=== PATIENT | male | born 1935 | race Caucasian/White ===

== ENCOUNTER → 2017-07-24 | Outpatient (CLI) | payer OTHER ==
[~2017-07-24] MED LIST: ATOR-22 PO; CHOL100010 PO; FINA5TAB PO; HYT/2 PO; MELO15TA3 PO; OMEG10007 PO; PRLSR20 PO; ZNTT/150 PO
== END | disposition home or self-care (01) ==
LOC: C.CPL 08:55
PROVIDERS: ATTEND Orthopaedic Surgery
DX: G56.21 Lesion of ulnar nerve, right upper limb (principal)

== ENCOUNTER 2020-12-08 07:34 | Inpatient (IN) ==
--- NOTE | 2020-11-15 10:35 | Anesthesiology Consultation ---
Date of Service November 15, 2020 Assessment & Plan (1) Encounter for pre-operative examination: Per assessment on 11/15: Travel screen negative. No known COVID-19 positive contacts or current COVID-19 related symptoms. Surgeon arranging preop COVID testing. Awaiting results. Chart Review Chart Review: Acceptable Risk for Surgery and entry specialist initiated (information recalled from 10/11/20 PAT visit) History Surgery Operation Date: 12/08/20 07:45 Proposed Procedures p L2-L4 Decompression Fusion, L4-S1 Hardware Removal, Spinal Cord Monitoring - Adonay Hook DO Height/Weight Height: 5 ft 7 in Weight: 54.431 kg Allergies Allergy/AdvReac Type Severity Reaction Status Date / Time No Known Drug Allergies Allergy Verified 11/15/20 09:34 Medications Home Medications Medication Instructions Recorded Confirmed Last Taken food supplemt, lactose-reduced 1 ea PO QAM ml 05/19/19 11/15/20 12/02/19 multivitamin with minerals-folic 200 mcg PO QAM tab 05/19/19 11/15/20 12/02/19 acid 200 mcg chewable tablet omega-3 acid ethyl esters 1 gram 1 cap PO QDL cap 05/19/19 11/15/20 12/02/19 capsule magnesium 200 mg tablet 200 mg PO 2XWK 03/04/20 11/15/20 Unknown omeprazole 20 mg tablet,delayed 20 - 40 mg PO QAM tab 07/19/20 11/15/20 Unknown release Vitamin D 1 tab PO QAM 09/20/20 11/15/20 Unknown aspirin-caffeine [[place] Back and 1 tab PO UD PRN 09/20/20 11/15/20 Unknown Body] sodium chloride [[place] Allergy and 1 - 2 spray INTRANASAL HS PRN 09/20/20 11/15/20 Unknown Sinus] terazosin 2 mg PO HS 09/20/20 11/15/20 Unknown zinc 50 mg PO 2XWK 09/20/20 11/15/20 Unknown Past Medical History Medical History Apical lung scarring Arthritis BPH (benign prostatic hyperplasia) Cervical radiculopathy Cervical stenosis of spine GERD (gastroesophageal reflux disease) controlled Hernia, hiatal History of duodenal ulcer several years ago Hyperlipidemia Pulmonary nodule hx SNHL (sensorineural hearing loss) Past Family History Family History Father Coronary heart disease Sister Colon cancer Unknown No family history of bleeding disorder Other No family history of adverse response to anesthesia Past Surgical History Surgical History History of bilateral cataract extraction History of carpal tunnel surgery of right wrist History of colonoscopy History of discectomy L4 History of elbow surgery right for pinched nerve History of elbow surgery left for pinched nerve History of esophagogastroduodenoscopy (EGD) History of fusion of lumbar spine History of mandibular surgery pins in place of upper jaw to hold teeth History of prostate biopsy History of tonsillectomy History of tooth extraction all teeth History of total left hip replacement History of total right hip replacement History of transurethral resection of prostate Status post trigger finger release x2--one one each hand Social History Smoking Status: Former smoker Do You Dip or Chew Tobacco: No Smoking End Date: quit cigars 1974 Hx Alcohol Use: Yes Alcohol type: beer alcohol intake frequency: a few times a week Hx Substance Use: No substance use type: does not use Review of Systems Patient denies chest pain, shortness of breath, dyspnea on exertion, joint pain, reflux, cough, wheezing, palpitations. Physical Exam Vital Signs Vital Signs BP 144/76 P 73 TEMP 97.6 SP02 95%RA RESP 16 Physical Decreased cervical extension Full TMJ range of motion. TMD 3 finger breaths Mallampati Score 2 Dentition: upper/lower dentures Lungs: clear throughout to auscultation Cardiac: regular rate and rhythm, no murmurs noted Spine: normal Carotid arteries: negative bruit Extremities: no edema Testing Laboratory Results 10/11/20 WBC 6.63 H/H 14.3/42.6 PLATELETS 202 SODIUM 140 POTASSIUM 4.0 CHLORIDE 109 CO2 27 BUN 18 CREATININE 1.14 GLUCOSE 129 PT 10.6 PTT 28.6 INR 1.0 UA negative TYPE AND SCREEN O+ Ab- Electrocardiogram Date: 10/11/20 SB with sinus arrhythmia at 59bpm. Chest X-Ray Date: 10/11/20 FINDINGS: Punctate calcified granulomas within the left lung. Linear density at the left lung base favor scarring or atelectasis otherwise, lungs are clear. No pleural effusions. No pneumothorax. The heart is normal in size. Mild right apical pleural thickening. This is likely chronic. The heart is normal in size. IMPRESSION: No acute process.
[~2020-12-08 07:34] MED LIST changes: +ACETAMINOPHEN 500 MG TAB PO SCH; -ATOR-22 PO; -CHOL100010 PO; +CeleBREX 200 MG CAP PO SCH; -FINA5TAB PO; +GABAPENTIN 300 MG CAP PO SCH; -HYT/2 PO; +LR 15ML/HR IV SCH; -MELO15TA3 PO; -OMEG10007 PO; -PRLSR20 PO; -ZNTT/150 PO; +ceFAZolin 1000MG 1,000 MG/7.5 ML SYR IV SCH
[2020-12-08] MEDS ORDERED: DEXAMETHASONE SOD INJ 4 MG/ML VIAL ONE (08:27)
[2020-12-08] MEDS ORDERED: LIDOCAINE HCL 2% 2 ML VIAL/AMP(20MG/ML) INFIL ONE (08:27)
[2020-12-08] MEDS ORDERED: GLYCOPYRROLATE 0.2 MG/ML VIAL ONE ×2 (08:27→11:09)
[2020-12-08] MEDS ORDERED: ONDANSETRON INJ 2 MG/ML 2 ML VIAL ONE (08:27)
[2020-12-08] MEDS ORDERED: ROCURONIUM BROMIDE 10 MG/ML 5 ML VIAL IV ONE (08:27)
[2020-12-08] MEDS ORDERED: MIDAZOLAM HCL 1 MG/ML 2ML VIAL ONE (08:27)
[2020-12-08] MEDS ORDERED: PROPOFOL IV EMULSION 10 MG/ML 20 ML VIAL IV ONE (08:27)
[2020-12-08] MEDS ORDERED: NEOSTIGMINE METHYLSULFATE 1 MG/ML 10ML VIAL ONE (08:27)
[2020-12-08] MEDS ORDERED: HYDROmorphone INJ 2 MG/ML SYR/VIAL ONE (08:28)
[2020-12-08] MEDS ORDERED: fentaNYL citrate 100 MCG/2 ML VIAL IV PRN (09:24)
[2020-12-08] MEDS ORDERED: ePHEDrine sulfate 50 MG/ML AMP IV PRN (09:24)
[2020-12-08] MEDS ORDERED: ATROPINE SULFATE 0.1 MG/ML 10ML SYR IV PRN (09:24)
[2020-12-08] MEDS ORDERED: ONDANSETRON INJ 2 MG/ML 2 ML VIAL IV PRN ×2 (09:24→14:02)
[2020-12-08] MEDS ORDERED: HYDROmorphone INJ 1 MG/ML SYRINGE IV PRN ×2 (09:24→14:02)
--- NOTE | 2020-12-08 09:54 | History & Physical Bridge Note ---
Date of Service December 08, 2020 History & Physical Bridge Note I have examined the patient, reviewed the History & Physical and in the interval since the performance of the History & Physical I have noted the following changes of clinical significance: no changes noted
--- NOTE | 2020-12-08 09:55 | History & Physical Report ---
Date of Service December 08, 2020 Assessment & Plan (1) Neurogenic claudication due to lumbar spinal stenosis: Admission and Anticipated Discharge Date Admission Date: L2-L4 decompression fusion, L4-S1 hardware removal History of Present Illness Chief Complaint: Back and bilateral leg pain Primary Care Provider: Rodriguez Gutierrez MD This is a 85-year-old male who presents with current persistent back and bilateral leg pain. After failing course of nonoperative care is here for surgical intervention. Allergies Allergy/AdvReac Type Severity Reaction Status Date / Time No Known Drug Allergies Allergy Verified 12/08/20 08:12 Home Medications Medication Instructions Recorded Confirmed Type food supplemt, lactose-reduced 1 ea PO QAM ml 05/19/19 12/08/20 History multivitamin with minerals-folic 200 mcg PO QAM tab 05/19/19 12/08/20 History acid 200 mcg chewable tablet omega-3 acid ethyl esters 1 gram 1 cap PO QDL cap 05/19/19 12/08/20 History capsule magnesium 200 mg tablet 200 mg PO 2XWK 03/04/20 12/08/20 History omeprazole 20 mg tablet,delayed 20 - 40 mg PO QAM tab 07/19/20 12/08/20 History release Vitamin D 1 tab PO QAM 09/20/20 12/08/20 History aspirin-caffeine [[place] Back and 1 tab PO UD PRN 09/20/20 12/08/20 History Body] sodium chloride [[place] Allergy and 1 - 2 spray INTRANASAL HS PRN 09/20/20 12/08/20 History Sinus] terazosin 2 mg PO HS 09/20/20 12/08/20 History zinc 50 mg PO 2XWK 09/20/20 12/08/20 History Past Med/Surg History Medical History Apical lung scarring Arthritis BPH (benign prostatic hyperplasia) Cervical radiculopathy Cervical stenosis of spine GERD (gastroesophageal reflux disease) controlled Hernia, hiatal History of duodenal ulcer several years ago Hyperlipidemia Pulmonary nodule hx SNHL (sensorineural hearing loss) Surgical History History of bilateral cataract extraction History of carpal tunnel surgery of right wrist History of colonoscopy History of discectomy L4 History of elbow surgery right for pinched nerve History of elbow surgery left for pinched nerve History of esophagogastroduodenoscopy (EGD) History of fusion of lumbar spine History of mandibular surgery pins in place of upper jaw to hold teeth History of prostate biopsy History of tonsillectomy History of tooth extraction all teeth History of total left hip replacement History of total right hip replacement History of transurethral resection of prostate Status post trigger finger release x2--one one each hand Family History Father Coronary heart disease Sister Colon cancer Unknown No family history of bleeding disorder Other No family history of adverse response to anesthesia Social History Smoking Status: Former smoker Smoking End Date: quit cigars 1974; Second Hand Exposure: No; Do You Dip or Chew Tobacco: No; Tobacco Cessation Education Requested by Patient: No Hx Alcohol Use: Yes Alcohol type: beer Hx Substance Use: No Preferred Language: Guatemalan Communication Ability: Effective Visual Impairment: No Limitations Hearing Ability: Normal 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 Beliefs That Will Affect Care: None marital status: Current Living Situation: Spouse current occupational status: retired Feels Safe at Home: Yes Safety Concerns: Feels Safe At This Time Childhood Exposure to Second-Hand Smoke: No caffeine: Yes Dental Care, Regularly: No Physical Activity Frequency: Daily Seatbelt Use: always Sunscreen Use: Yes Assistive Devices: Denture - Upper, Denture - Lower and Glasses Physical Exam Physical Exam: Patient is alert and oriented Heart regular rate and rhythm Lungs clear to auscultation Results & Data ([facility]) Vital Signs (Past 12 Hours) Vital Signs Temp Pulse Resp BP Pulse Ox 12/08/20 07:55 36.6 C 72 18 161/90 H 97
[2020-12-08] MEDS ORDERED: BACITRACIN INJ 50,000 UNIT VIAL ONE (10:16)
[2020-12-08] MEDS ORDERED: BUPIVACAINE/EPINEPHRINE 0.5% MPF 1:200,000 30 ML VIAL ONE (10:16)
[2020-12-08] MEDS ORDERED: FLOSEAL HEMOSTATIC MATRIX 10ML TOP ONE (11:05)
--- NOTE | 2020-12-08 12:37 | Operative Report ---
Post Operative Report Pre & Post Diagnosis Operation Date: 12/08/20 09:05 Pre-Op Diagnosis: Spinal Stenosis, Lumbar Region without Neurogenic Post-Op Diagnosis: Spinal Stenosis, Lumbar Region without Neurogenic I identified the patient and participated in the time-out.: Yes Procedure Operation Date: 12/08/20 09:05 Actual Procedures #1 removal of posterior instrumentation L4-5 L5-S1. #2 exploration of fusion L4-5 L5-S1. 3 lumbar decompression with bilateral medial facetectomies and foraminotomies L2-3 and L3-4. #4 posterior spinal fusion L2-3 L3-4. #5 placement posterior instrumentation L2-3 L3-4 per #6 placement locally harvested morselized autograft in the posterior lateral gutters. #7 placement infuse collagen sponge, and master graft in the posterior gutters. Surgeon Adonay Hook, Butter Grader Vitaliy Ramos Estimated Blood Loss 100 Findings Consistent with Post-Op Diagnosis Specimens None Indications This is an 85-year-old male well-known to me the presents with marked decline in status. After failing course of nonoperative care is here for the above- mentioned procedure. Description of Procedure Patient met with identified informed consent obtained. Patient was then taken to the operative suite underwent an patient placed in a prone position injectable top Jeovany frame. All bony prominences well-padded eyes inspected to ensure no external pressure placed upon the. This point the lumbar spine was prepped and draped in a sterile fashion. Sharp dissection with assistance of Bovie cautery was performed down to and exposing the lamina and transverse processes of L2-L3 and instrumentation at L4-L5 and S1 levels bilaterally. Then proceeded to remove the hardware bilaterally at L4-L5 and S1. The bony fusion was intact noted to be mature. Then performed a complete laminectomy of L3 and L2 from a caudal cephalad fashion addressing severe central lateral recess stenosis. Pedicle screws then placed in L2-L3-L4 bilaterally with assistance of fluoroscopy and the appropriately sized rosa isela locked into position. Transverse processes of L2-L3-L4 burred to subcortical bleeding bone. Infuse collagen sponge master graft local autograft was placed in the posterior lateral gutters. 15 round RAISSA drain inserted. The incision was then closed with 1 Vicryl the fascia 2-0 Vicryl subcutaneously and 4 Monocryl for final skin closure. Steri- Strip sterile dressings placed. Patient will continue PACU stable condition. Please note spinal cord monitoring was utilized at the procedure no changes noted. Brenda diaz was present throughout the entire procedure involved the patient positioning complex portions of the surgery and final skin closure. I attest to the content of the Intraoperative Record and any orders documented therein. Any exceptions are noted below.
--- NOTE | 2020-12-08 13:27 | Fluoroscopy Report ---
FL lumbar spine 2-3V CLINICAL HISTORY: L2-L4 DECOMPRESSION AND FUSION L4-S1 HW REMOVAL COMPARISON STUDY: None. FLUOROSCOPY TIME: 11 seconds. FINDINGS: 2 fluoroscopic spot images of the lumbar spine demonstrate L2-L4 posterior decompression fu shahab with pedicle screws and rods. The hardware appears intact. IMPRESSION: Fluoroscopy provided for L2 L4 posterior decompression and fusion ACT 112: Negative or not required by law. Electronically signed by: Jovan Hughes M.D. 12/08/2020 1:26 PM
[2020-12-08] MEDS ORDERED: SOD PHOSPHATE/SOD BIPHOSPHATE ENEMA 132 ML BTL PR PRN (14:02)
[2020-12-08] MEDS ORDERED: NALOXONE HCL 0.4 MG/1 ML VIAL/CARP IV PRN (14:02)
[2020-12-08] MEDS ORDERED: DO NOT ADMINISTER PNEUMOCOCCAL VACCINE PRN (14:02)
[2020-12-08] MEDS ORDERED: diphenhydrAMINE Capsule 25 MG CAP PO PRN (14:02)
[2020-12-08] MEDS ORDERED: MAGNESIUM HYDROXIDE SUSP 30 ML UDC PO PRN (14:02)
[2020-12-08] MEDS ORDERED: METOCLOPRAMIDE HCL INJ 5 MG/ML 2 ML VIAL IV PRN (14:02)
[2020-12-08] MEDS ORDERED: LORazepam 0.5 MG/1 ML VIAL IV PRN (14:02)
[2020-12-08] MEDS ORDERED: LORazepam 0.5 MG TAB PO PRN (14:02)
[2020-12-08] MEDS ORDERED: ACETAMINOPHEN 500 MG TAB PO PRN (14:02)
[2020-12-08] MEDS ORDERED: oxyCODONE HCL IR 5 MG TAB (IMMEDIATE RELEASE) PO PRN (14:02)
[2020-12-08] MEDS ORDERED: hydrOXYzine HCl 25 MG TAB PO PRN (14:02)
[2020-12-08] MEDS ORDERED: PROMETHAZINE HCL 12.5 MG in SODIUM CHLORIDE 0.9% 50 ML IV PRN (14:02)
[2020-12-08] MEDS ORDERED: FAMOTIDINE 20 MG TAB PO PRN (14:02)
[2020-12-08] MEDS ORDERED: HYDROmorphone INJ 0.5 MG/0.5 ML SYR IV PRN (14:02)
[2020-12-08] MEDS ORDERED: DO NOT ADMINISTER FLU VACCINE PRN (14:02)
[2020-12-08] MEDS ORDERED: ACETAMINOPHEN 1,000 MG/100 ML VIAL IV PRN (14:02)
[2020-12-08] MEDS ORDERED: ONDANSETRON 4 MG OD TAB PO PRN (14:02)
[2020-12-08] MEDS ORDERED: ALUMINUM/MAGNESIUM SUSP 30 ML UDC PO PRN (14:02)
--- NOTE | 2020-12-08 15:20 | Hospitalist Consultation ---
Date of Consultation December 08, 2020 Assessment & Plan (1) Neurogenic claudication due to lumbar spinal stenosis: POD# 0 s/p lumbar decompression/fusion of previous repair involving the following (failed outpatient treatment): * #1 removal of posterior instrumentation L4-5 L5-S1. * #2 exploration of fusion L4-5 L5-S1. * #3 lumbar decompression with bilateral medial facetectomies and foraminotomies L2-3 and L3-4. * #4 posterior spinal fusion L2-3 L3-4. * #5 placement posterior instrumentation L2-3 L3-4 per * #6 placement locally harvested morselized autograft in the posterior lateral gutters. * #7 placement infuse collagen sponge, and master graft in the posterior gutters with Dr. Hook * PT/OT/pain management/bowel regimen per primary service * NSS @ 100cc/hr * Cefazolin for operative abx * EBL 100cc. 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 Mccullough. Hospitalist service will follow along. Supervising Physician Co-Signing Physician Notes I supervised Sridevi Cooney PA-C on this consultation. I interviewed and examined the patient independently of her. The plan is as written in the note except for any following changes/exceptions: None Doing well post-operatively. Already asking to go home. Neurologically intact. Defer disposition to Dr. Hook. History of Present Illness Reason for Consultation: medical management Requesting Physician: Dr Hook Attending Physician: Adonay Hook, DO History of Present Illness 85 male with PMHx significant for GERD (with hx duodenal ulcer, hiatal hernia and hx Schatzki's rings), HLD (previously on Pravastatin), BPH and arthritis with significant decline in status failing outpatient treatment for back pain presented for removal of hardware and lumbar decompression and fusion L2-L4 with Dr. Hook this morning. Patient doing well post-operatively. Denies any pain at this time. Strength improved to bilateral lower extremities. Slightly tired following procedure and initially napping on entry to room with blankets on. History of GERD but states symptoms controlled outside of occasional belching today. Discussed Protonix while inpatient. Patient agreeable. Otherwise healthy, takes vitamins and terazosin for BPH. Still with Shea draining yellow urine but will need to monitor output once discontinued. Passing gas but no BM. Has not eaten yet. No fever, chills, chest pain, shortness of breath, abdominal pain, nausea, vomiting or dysuria. Lives at home with his and initially states "hopefully I'll be going home today". Discussed back surgery likely to remain inpatient for at least overnight but will leave decision up to Dr Hook. Allergies Allergy/AdvReac Type Severity Reaction Status Date / Time No Known Drug Allergies Allergy Verified 12/08/20 08:12 Home Medications Medication Instructions Recorded Confirmed Type food supplemt, lactose-reduced 1 ea PO QAM ml 05/19/19 12/08/20 History multivitamin with minerals-folic 200 mcg PO QAM tab 05/19/19 12/08/20 History acid 200 mcg chewable tablet omega-3 acid ethyl esters 1 gram 1 cap PO QDL cap 05/19/19 12/08/20 History capsule magnesium 200 mg tablet 200 mg PO 2XWK 03/04/20 12/08/20 History omeprazole 20 mg tablet,delayed 20 - 40 mg PO QAM tab 07/19/20 12/08/20 History release Vitamin D 1 tab PO QAM 09/20/20 12/08/20 History aspirin-caffeine [[place] Back and 1 tab PO UD PRN 09/20/20 12/08/20 History Body] sodium chloride [[place] Allergy and 1 - 2 spray INTRANASAL HS PRN 09/20/20 12/08/20 History Sinus] terazosin 2 mg PO HS 09/20/20 12/08/20 History zinc 50 mg PO 2XWK 09/20/20 12/08/20 History Patient History Medical History Apical lung scarring Arthritis BPH (benign prostatic hyperplasia) Cervical radiculopathy Cervical stenosis of spine GERD (gastroesophageal reflux disease) controlled Hernia, hiatal History of duodenal ulcer several years ago Hyperlipidemia Pulmonary nodule hx SNHL (sensorineural hearing loss) Surgical History History of bilateral cataract extraction History of carpal tunnel surgery of right wrist History of colonoscopy History of discectomy L4 History of elbow surgery right for pinched nerve History of elbow surgery left for pinched nerve History of esophagogastroduodenoscopy (EGD) History of fusion of lumbar spine History of mandibular surgery pins in place of upper jaw to hold teeth History of prostate biopsy History of tonsillectomy History of tooth extraction all teeth History of total left hip replacement History of total right hip replacement History of transurethral resection of prostate Status post trigger finger release x2--one one each hand Family History Father Coronary heart disease Sister Colon cancer Unknown No family history of bleeding disorder Other No family history of adverse response to anesthesia Social History Smoking Status: Former smoker Smoking End Date: quit 1974; Second Hand Exposure: No; Do You Dip or Chew Tobacco: No; Tobacco Cessation Education Requested by Patient: No Hx Alcohol Use: Yes Alcohol type: beer Hx Substance Use: No Preferred Language: [place] Communication Ability: Effective Visual Impairment: No Limitations Hearing Ability: Normal Director Of Reimbursement Required: No Beliefs That Will Affect Care: None marital status: Current Living Situation: Spouse current occupational status: retired Feels Safe at Home: Yes Safety Concerns: Feels Safe At This Time Childhood Exposure to Second-Hand Smoke: No caffeine: Yes Dental Care, Regularly: No Physical Activity Frequency: Daily Seatbelt Use: always Sunscreen Use: Yes Assistive Devices: Denture - Upper, Denture - Lower and Glasses Review of Systems Review of Systems: All systems reviewed & are unremarkable except as noted in HPI & below Physical Exam Constitutional: WD/WN, vitals as above comfortable; no acute distress Eyes: + anicteric sclerae and PERRL ENMT: mmm Neck: normal visual inspection and trachea midline Respiratory: normal respiratory effort, lungs clear to auscultation (bibasilar crackles) able to speak in complete sentences; no respiratory distress and no cough Auscultation: no wheezes Cardiovascular: Rate/Rhythm: regular rate and regular rhythm Heart Sounds: no murmur Vessels: no JVD Extremities: no edema Gastrointestinal (Abdomen): normal bowel sounds, soft, nontender, no hepatosplenomegaly Musculoskeletal: no cyanosis or clubbing, extremities motor strength 5/5 RAISSA drain with bloody output noted dressing to lumbar spine c/d/i non-tender NVI, pulses palpable bilaterally strength 5/5 with dorsiflexion/plantar flexion Skin: cool, dry Neurologic: patellar DTR's 2+ bilat, sensation intact and PERRL, EOMI, accommodation nl, no face palsy, no dysarthria Psychiatric: Orientation: alert and oriented x 3 Genitourinary: shea draining yellow urine Lymphatic: no cervical or axillary lymphadenopathy Results & Data Results & Data ([facility]) Vital Signs (Past 12 Hours) Vital Signs Temp Pulse Pulse Resp BP Pulse Ox 12/08/20 14:30 36.5 C 62 16 127/71 94 12/08/20 13:30 36.8 C 64 14 108/88 95 12/08/20 13:20 67 15 118/70 95 12/08/20 13:10 66 18 115/67 98 12/08/20 13:01 36.7 C 65 22 116/62 97 12/08/20 07:55 36.6 C 72 18 161/90 H 97 Laboratory Results 12/08/20 Range/Units 07:58 Blood Type O Positive Antibody Screen NEGATIVE Crossmatch See Detail Diagnostic Findings FL lumbar spine 2-3V CLINICAL HISTORY: L2-L4 DECOMPRESSION AND FUSION L4-S1 HW REMOVAL COMPARISON STUDY: None. FLUOROSCOPY TIME: 11 seconds. FINDINGS: 2 fluoroscopic spot images of the lumbar spine demonstrate L2-L4 posterior decompression fusion with pedicle screws and rods. The hardware appears intact. IMPRESSION: Fluoroscopy provided for L2 L4 posterior decompression and fusion PG Care Time/CCT Total # of Minutes Spent Total Time Spent with Patient: Total time spent is greater than 50% in coordination of care (as documented) at patient's floor/unit and/or counseling patient: Coding Level of Care Code 97348 Inpt Consult Level 3 Diagnoses Neurogenic claudication due to lumbar spinal stenosis M48.062 Hyperlipidemia E78.5 Hyperlipidemia type: unspecified Hiatal hernia with GERD K21.9; K44.9 Schatzki's ring K22.2 Enlarged prostate with lower urinary tract symptoms (LUTS) N40.1 Elevated glucose level R73.09 DVT prophylaxis Z29.9 (1) Hyperlipidemia Hyperlipidemia type: unspecified Qualified Code(s): E78.5 - Hyperlipidemia, unspecified
--- NOTE | 2020-12-08 15:56 | Anesthesiology Progress Note ---
Date of Service December 08, 2020 Anesthesia Post Procedure Vital Signs Vital Signs: Temp Pulse Pulse Resp BP Pulse Ox 12/08/20 15:20 36.5 C 63 16 123/63 95 12/08/20 14:30 36.5 C 62 16 127/71 94 12/08/20 13:30 36.8 C 64 14 108/88 95 12/08/20 13:20 67 15 118/70 95 12/08/20 13:10 66 18 115/67 98 12/08/20 13:01 36.7 C 65 22 116/62 97 12/08/20 07:55 36.6 C 72 18 161/90 H 97 Pain Intensity Back: Pain Intensity: 6 Transfer of Care Handoff Completed per policy Notes Mental Status: alert / awake / arousable and participated in evaluation Patient Amnestic to Procedure: Yes Nausea / Vomiting: adequately controlled Pain: adequately controlled Airway Patency, RR, SpO2: stable & adequate BP & HR: stable & adequate Hydration State: stable & adequate Anesthetic Complications: no major complications apparent and Pt Satisfied with anesthetic care
[2020-12-08] MEDS: ceFAZolin 2000MG 2,000 MG/15 ML SYR IV SCH (17:07)
[2020-12-08] MEDS: PANTOprazole 40 MG TAB PO SCH (17:07)
[2020-12-08] MEDS: SODIUM CHLORIDE 0.9% 1000ML 1,000 ML IV SCH (17:07)
[2020-12-08] MEDS: TERAZOSIN HCL 1 MG CAP PO SCH (20:44)
[2020-12-08] MEDS: DOCUSATE SODIUM/SENNA 50/8.6MG TAB PO SCH (20:44)
[2020-12-09] MEDS: ceFAZolin 2000MG 2,000 MG/15 ML SYR IV SCH (01:48)
[2020-12-09] MEDS: SODIUM CHLORIDE 0.9% 1000ML 1,000 ML IV SCH (05:29)
[2020-12-09 06:31] LABS: Basophils # (auto) 0.01 K/uL (0-0.2); Basophils % (auto) 0.1 %; Eosinophils # (auto) 0.01 K/uL (0-0.5); Eosinophils % (auto) 0.1 %; Hematocrit (blood only) 35.2 % (42-52); Hemoglobin 11.9 g/dL (14.0-18.0); Immature Granulocytes # (auto) 0.02 K/uL (0.00-0.02); Immature Granulocytes % (auto) 0.2 %; Lymphocytes % (auto) 8.6 %; Mean Corpuscular Hemoglobin 31.2 pg (25-34); Mean Corpuscular Hgb Conc 33.8 g/dL (32-36); Mean Corpuscular Volume 92.1 fL (80-100); Mean Platelet Volume 10.4 fL (7.4-10.4); Monocytes # (auto) 1.65 K/uL (0.11-0.59); Monocytes % (auto) 17.8 %; Neutrophils # (auto) 6.78 K/uL (1.4-6.5); Neutrophils % (auto) 73.2 %; Platelet Count 168 K/uL (130-400); RDW Coefficient of Variation 13.9 % (11.5-14.5); RDW Standard Deviation 46.6 fL (36.4-46.3); Red Blood Count 3.82 M/uL (4.7-6.1); White Blood Count 9.27 K/uL (4.8-10.8)
[2020-12-09 06:56] LABS: BUN Creatinine Ratio 15.1 (10-20); Calcium 7.8 mg/dl (8.5-10.1); Creatinine Clr Calc Pharmacy 49.7 ml/min; Est GFR (African American) 92.3; Est GFR (Non-African American) 79.7; Potassium 3.9 mmol/L (3.5-5.1)
[2020-12-09 07:24] LABS: Estimated Average Glucose 103 mg/dl; Hemoglobin A1C 5.2 % (4.5-5.6)
[2020-12-09] MEDS: traMADol HCL 50 MG TABLET PO PRN ×2 (07:59→17:33)
[2020-12-09] MEDS: CEROVITE ADV FORMULA TAB PO SCH (08:00)
[2020-12-09] MEDS: PANTOprazole 40 MG TAB PO SCH (08:21)
[2020-12-09] MEDS ORDERED: MAGNESIUM OXIDE 400 MG TAB PO SCH (09:00)
--- NOTE | 2020-12-09 11:42 | Hospitalist Progress Note ---
Date of Service December 09, 2020 Assessment & Plan (1) Neurogenic claudication due to lumbar spinal stenosis: POD# 1 s/p lumbar decompression/fusion of previous repair involving the following (failed outpatient treatment): * #1 removal of posterior instrumentation L4-5 L5-S1. * #2 exploration of fusion L4-5 L5-S1. * #3 lumbar decompression with bilateral medial facetectomies and foraminotomies L2-3 and L3-4. * #4 posterior spinal fusion L2-3 L3-4. * #5 placement posterior instrumentation L2-3 L3-4 per * #6 placement locally harvested morselized autograft in the posterior lateral gutters. * #7 placement infuse collagen sponge, and master graft in the posterior gutters with Dr. Hook * PT/OT/pain management/bowel regimen per primary service * NSS @ 100cc/hr -- discontinued * Cefazolin for operative abx * EBL 100cc. Pre-op h/h 14.3/42.6 * H/h 11.9/35.2 -- acute blood loss anemia following surgery and dilutional effect as had been on NSS @ 100cc/hr following surgery (subsequently discontinued) RAISSA output slightly increased from yesterday and per discussion with patient and nursing, Dr. Hook would like to keep patient in hospital through Saturday. 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 tolerating regular diet (4) Schatzki's ring: * noted as above (5) Enlarged prostate with lower urinary tract symptoms (LUTS): * Stable * Monitor UO * Continue terazosin 2mg PO HS (6) Elevated glucose level: * Glucose 129 on pre-op labs but 105 today. A1c 5.2 (7) DVT prophylaxis: * SCDs * Chemoproph contraindicated in back surgery Thank you for allowing hospitalist team to participate in the care of Mr. Mccullough. Hospitalist service will sign off. Please call with any questions/concerns. Admission and Anticipated Discharge Date Admission Date: December 08, 2020 Subjective Patient evaluated this morning. Seen by Dr. Hook and was told d/c not until Saturday likely which is his bummed about but we did discuss RAISSA output and if drain removed too early could develop hematoma. Doing well otherwise and pain controlled with tramadol. Worked with therapy and no issues. Eating/drinking without difficulty. No fever, chills, chest pain, shortness of breath, abdominal pain, nausea, vomiting at this time. Questions/concerns addressed at this time. Review of Systems Review of Systems: All systems reviewed & are unremarkable except as noted in HPI & below Physical Exam Constitutional: WD/WN, vitals as above comfortable; no acute distress Eyes: + anicteric sclerae and PERRL ENMT: mmm Neck: normal visual inspection and trachea midline Respiratory: normal respiratory effort, lungs clear to auscultation (bibasilar crackles, improved) able to speak in complete sentences; no respiratory distress and no cough Auscultation: no wheezes Cardiovascular: Rate/Rhythm: regular rate and regular rhythm Heart Sounds: no murmur Vessels: no JVD Extremities: no edema Gastrointestinal (Abdomen): normal bowel sounds, soft, nontender, no hepatosplenomegaly Musculoskeletal: no cyanosis or clubbing, extremities motor strength 5/5 dressing to lumbar spine c/d/i RAISSA with bloody drainage NVI strength 5/5 plantar/dorsiflexion pulses palpable bilaterally Skin: cool, dry Neurologic: patellar DTR's 2+ bilat, sensation intact and PERRL, EOMI, acco mmodation nl, no face palsy, no dysarthria Psychiatric: Orientation: alert and oriented x 3 Lymphatic: no cervical or axillary lymphadenopathy Results & Data [facility] Vital Signs (Past 12 Hours) Vital Signs Temp Pulse Resp BP Pulse Ox 12/09/20 11:13 36.3 C L 62 16 124/69 92 12/09/20 07:33 36.7 C 64 16 119/65 94 12/09/20 04:00 36.9 C 59 L 14 122/64 95 Laboratory Results 12/09/20 12/09/20 12/09/20 Range/Units 06:03 06:03 06:03 WBC 9.27 (4.8-10.8) K/uL RBC 3.82 L (4.7-6.1) M/uL Hgb 11.9 L (14.0-18.0) g/dL Hct 35.2 L (42-52) % MCV 92.1 (80-100) fL MCH 31.2 (25-34) pg MCHC 33.8 (32-36) g/dL RDW Std Deviation 46.6 H (36.4-46.3) fL RDW Coeff of Mary 13.9 (11.5-14.5) % Plt Count 168 (130-400) K/uL MPV 10.4 (7.4-10.4) fL Immature Gran % (Auto) 0.2 % Neut % (Auto) 73.2 % Lymph % (Auto) 8.6 % [place] % (Auto) 17.8 % Eos % (Auto) 0.1 % Baso % (Auto) 0.1 % Neut # (Auto) 6.78 H (1.4-6.5) K/uL Lymph # (Auto) 0.80 L (1.2-3.4) K/uL [place] # (Auto) 1.65 H (0.11-0.59) K/uL Eos # (Auto) 0.01 (0-0.5) K/uL Baso # (Auto) 0.01 (0-0.2) K/uL Immature Gran # (Auto) 0.02 (0.00-0.02) K/uL Sodium 143 (136-145) mmol/L Potassium 3.9 (3.5-5.1) mmol/L Chloride 111 H (98-107) mmol/L Carbon Dioxide 28 (21-32) mmol/L Anion Gap 4.0 (3-11) BUN 13 (7-18) mg/dl Creatinine 0.83 (0.6-1.4) mg/dl Est Cr Clr Drug Dosing 49.7 ml/min Est GFR ( Amer) 92.3 Est GFR (Non-Af Amer) 79.7 BUN/Creatinine Ratio 15.1 (10-20) Glucose 105 H (70-99) mg/dl Estimat Average Glucose 103 mg/dl Hemoglobin A1c 5.2 (4.5-5.6) % Calcium 7.8 L (8.5-10.1) mg/dl PG Care Time/CCT Total # of Minutes Spent Total Time Spent with Patient: Total time spent is greater than 50% in coordination of care (as documented) at patient's floor/unit and/or counseling patient: Coding Level of Care Code 88992 Subseq Hosp Care Lvl 2 Diagnoses Neurogenic claudication due to lumbar spinal stenosis M48.062 Hyperlipidemia E78.5 Hyperlipidemia type: unspecified Hiatal hernia with GERD K21.9; K44.9 Schatzki's ring K22.2 Enlarged prostate with lower urinary tract symptoms (LUTS) N40.1 Elevated glucose level R73.09 DVT prophylaxis Z29.9 (1) Hyperlipidemia Hyperlipidemia type: unspecified Qualified Code(s): E78.5 - Hyperlipidemia, unspecified
[2020-12-09] MEDS: OMEGA-3 (PURIFIED FISH OIL) 1 GM CAP PO SCH (12:40)
[2020-12-09] MEDS: POLYETHYLENE (MIRALAX) 17 GM PACK PO SCH ×3 (12:40→23:38)
--- NOTE | 2020-12-09 13:28 | Orthopedic Progress Note ---
Date of Service December 09, 2020 Assessment & Plan (1) Neurogenic claudication due to lumbar spinal stenosis: Admission and Anticipated Discharge Date Admission Date: December 08, 2020 Patient will continue physical therapy monitor RAISSA operatively discharge home in the next few days. Subjective Back pain controlled leg symptoms markedly improved Physical Exam Physical Exam: Patient is good strength testing appears comfortable. Results & Data ([facility]) Vital Signs (Past 12 Hours) Vital Signs Temp Pulse Resp BP Pulse Ox 12/09/20 11:13 36.3 C L 62 16 124/69 92 12/09/20 07:33 36.7 C 64 16 119/65 94 12/09/20 04:00 36.9 C 59 L 14 122/64 95
[2020-12-09] MEDS: DOCUSATE SODIUM/SENNA 50/8.6MG TAB PO SCH (20:36)
[2020-12-09] MEDS: TERAZOSIN HCL 1 MG CAP PO SCH (20:36)
[2020-12-10] MEDS: POLYETHYLENE (MIRALAX) 17 GM PACK PO SCH ×3 (05:54→18:11)
[2020-12-10] MEDS: traMADol HCL 50 MG TABLET PO PRN (07:48)
[2020-12-10] MEDS: PANTOprazole 40 MG TAB PO SCH (08:57)
[2020-12-10] MEDS: CEROVITE ADV FORMULA TAB PO SCH (08:57)
--- NOTE | 2020-12-10 11:28 | Orthopedic Progress Note ---
Date of Service December 10, 2020 Assessment & Plan (1) Neurogenic claudication due to lumbar spinal stenosis: Admission and Anticipated Discharge Date Admission Date: December 08, 2020 This time we will continue physical therapy monitor his RAISSA output anticipate discharge home tomorrow. Subjective Back pain controlled leg symptoms markedly improved Physical Exam Physical Exam: Patient is sitting up in the bedside. Is good strength testing. Appears comfortable. Results & Data ([facility]) Vital Signs (Past 12 Hours) Vital Signs Temp Pulse Resp BP Pulse Ox 12/10/20 07:31 37 C 74 16 127/74 93
[2020-12-10] MEDS: OMEGA-3 (PURIFIED FISH OIL) 1 GM CAP PO SCH (11:29)
[2020-12-10] MEDS ORDERED: DEXAMETHASONE SOD PHOSPHATE 8 MG in SYRINGE 0 ML IV ONE (12:00)
[2020-12-10] MEDS ORDERED: bisacodyL 10 MG SUPP PR PRN (12:38)
[2020-12-10] MEDS: TERAZOSIN HCL 1 MG CAP PO SCH (21:58)
[2020-12-10] MEDS: DOCUSATE SODIUM/SENNA 50/8.6MG TAB PO SCH (21:58)
[2020-12-11] MEDS: POLYETHYLENE (MIRALAX) 17 GM PACK PO SCH ×2 (00:57→06:03)
[2020-12-11] MEDS: CEROVITE ADV FORMULA TAB PO SCH (07:58)
[2020-12-11] MEDS: PANTOprazole 40 MG TAB PO SCH (07:58)
--- NOTE | 2020-12-11 08:27 | Discharge Summary ---
Date of Service December 11, 2020 Admission HPI Per Admitting Provider This is a 85-year-old male who presents with current persistent back and bilateral leg pain. After failing course of nonoperative care is here for surgical intervention. Discharge Data Consultations 12/08/20 14:02 Consult Case Management - Discharge Planning Routine 12/08/20 14:41 Consult Hospitalist Routine Procedures Performed Operation Date: 12/08/20 09:05 Actual Procedures p L2-L4 Decompression and Fusion, L4-S1 Hardware Removal, Spinal Cord Monitoring(Not Applicable) - Adonay Hook, [facility] Course (1) Neurogenic claudication due to lumbar spinal stenosis: Patient is an 85-year-old male who has history physical examination radiographic images consistent with adjacent level disease and spinal stenosis. This reason is brought to the operating room underwent a removal of hardware from L4-S1 and L2-L4 decompression fusion. This performed by Dr. Hook under general anesthesia. Patient was brought to PACU in stable condition. He was brought to the orthopedic floor. He was seen by physical therapy postop day 1 for ambulation and gait training. Today postop day #3 he was deemed safe for home discharge. I reviewed his discharge instructions. He should change dressing once daily until the dressing is dry once there is no drainage he may discontinue the dressing. He should avoid lifting nothing heavier than 5 pounds and should avoid any full bending at the waist. We will see him back in the office in approximately 2 weeks or sooner if he develops any increased pain fevers chills or drainage.
[2020-12-11] MEDS: traMADol HCL 50 MG TABLET PO PRN (10:44)
[2020-12-11] MEDS: OMEGA-3 (PURIFIED FISH OIL) 1 GM CAP PO SCH (10:44)
== END 2020-12-11 11:05 | disposition home or self-care (01) | DRG 460 ==
LOC: ASU 07:34 → 3E 13:14

== ENCOUNTER 2021-04-07 05:30 | Inpatient (IN) ==
--- NOTE | 2021-04-03 14:34 | PAT Medication Instructions ---
Medication Instructions Date of Service April 03, 2021 Home Medications food supplemt, lactose-reduced 1 ea PO QAM multivitamin with minerals-folic acid 200 mcg chewable tablet 200 mcg PO QAM omega-3 acid ethyl esters 1 gram capsule 1 cap PO QDL magnesium 200 mg tablet 200 mg PO 2XWK omeprazole 20 mg tablet,delayed release 20 - 40 mg PO QAM [place] [facility] 1 - 2 spray INTRANASAL HS PRN [place] Back and Body 1 tab PO UD PRN terazosin 2 mg PO HS zinc 50 mg PO 2XWK cholecalciferol (vitamin D3) [Vitamin D3] 10 mcg PO QAM ASK your surgeon for instructions [facility] Back and Body 1 tab PO UD PRN STOP taking 2 weeks before surgery (or as soon as possible if surgery is within 2 weeks) omega-3 acid ethyl esters 1 gram capsule 1 cap PO QDL DO NOT take the morning of surgery food supplemt, lactose-reduced 1 ea PO QAM multivitamin with minerals-folic acid 200 mcg chewable tablet 200 mcg PO QAM magnesium 200 mg tablet 200 mg PO 2XWK zinc 50 mg PO 2XWK cholecalciferol (vitamin D3) [Vitamin D3] 10 mcg PO QAM Take morning of surgery With a small sip of water, OTHERWISE NOTHING TO EAT OR DRINK AFTER MIDNIGHT: omeprazole 20 mg tablet,delayed release 20 - 40 mg PO QAM Take evening before surgery [place] [facility] 1 - 2 spray INTRANASAL HS PRN (if needed) terazosin 2 mg PO HS Other Notes If you have any questions please call us at [phone] or [phone] or [phone] or [phone]
--- NOTE | 2021-04-04 08:47 | Anesthesiology Consultation ---
Date of Service April 04, 2021 Assessment & Plan (1) Encounter for pre-operative examination: Chart Review Chart Review: Acceptable Risk for Surgery and Patient seen in Pre Admission Testing Per [facility] appt on 04/04/21, patient denies any recent travel or large group activities. No known Covid positive contacts or Covid related symptoms. No known Covid infection in the past 90 days. Preop Covid testing done at [facility] appt on 04/04/21= negative. Educated on importance of self quarantining, social distancing and wearing mask in public both for the patient and household contacts. Pt fully vaccinated. L2-4 decompression and fusion 12/08/20= Done under [place] with Grade 1 view with [place] #2. ETT #7.5. Atraumatic, DL x 1. Teaching & Discussion Pre-Anesthesia Teaching/Discussion Notes: Instructed NPO after midnight before surgery,except medications with 15 cc of water. Medication instructions provided according to the [facility] guidelines. History Surgery Operation Date: 04/07/21 11:50 Proposed Procedures p Right Reverse Total Shoulder Arthroplasty - Francisco Javier Hogan DO Height/Weight Height: 5 ft 7 in Weight: 57.1 kg Allergies Allergy/AdvReac Type Severity Reaction Status Date / Time No Known Drug Allergies Allergy Verified 04/03/21 10:39 Medications Home Medications Medication Instructions Recorded Confirmed Last Taken food supplemt, lactose-reduced 1 ea PO QAM ml 05/19/19 04/03/21 12/07/20 multivitamin with minerals-folic 200 mcg PO QAM tab 05/19/19 04/03/21 12/07/20 acid 200 mcg chewable tablet omega-3 acid ethyl esters 1 gram 1 cap PO QDL cap 05/19/19 04/03/21 11/23/20 capsule magnesium 200 mg tablet 200 mg PO 2XWK 03/04/20 04/03/21 12/05/20 omeprazole 20 mg tablet,delayed 20 - 40 mg PO QAM tab 07/19/20 04/03/21 12/08/20 05:30 release [place] [facility] 1 - 2 spray INTRANASAL HS PRN 09/20/20 04/03/21 Unknown [facility] Back and Body 1 tab PO UD PRN 09/20/20 04/03/21 12/04/20 terazosin 2 mg PO HS 09/20/20 04/03/21 12/07/20 zinc 50 mg PO 2XWK 09/20/20 04/03/21 12/07/20 cholecalciferol (vitamin D3) 10 mcg PO QAM 04/03/21 04/03/21 Unknown [Vitamin D3] Past Medical History Medical History (Updated 04/04/21 @ 09:07 by Sun Montero PA-C) Apical lung scarring "CALCIFIED POLYP OF LUNG (LEFT SIDE) LAST CT SCAN 2 YEARS AGO AT [facility]" Stable per patient Arthritis BPH (benign prostatic hyperplasia) Cervical stenosis of spine Degenerative disc disease GERD (gastroesophageal reflux disease) Well controlled and stable Hernia, hiatal Hx of thyroiditis 1969' Hyperlipidemia Diet controlled SNHL (sensorineural hearing loss) No hearing aids Exercise / Class Metabolic Activity II 4-5 Yardwork/Stairs/Walk up hill (one flight of stairs - no chest pain or SOB ) Past Family History Family History Father Coronary heart disease Myocardial infarction Sister Colon cancer Unknown No family history of bleeding disorder Other No family history of adverse response to anesthesia Denies family history of Ovarian cancer Prostate cancer Breast cancer Lung cancer Colorectal cancer Past Surgical History Surgical History History of anesthesia reaction URINARY RETENTION History of bilateral cataract extraction History of carpal tunnel surgery of right wrist History of colonoscopy History of discectomy L4 History of elbow surgery right for pinched nerve History of elbow surgery left for pinched nerve History of esophagogastroduodenoscopy (EGD) History of fusion of lumbar spine X 2 History of mandibular surgery pins in place of upper jaw to hold teeth No issues with opening or closing jaw History of prostate biopsy History of tonsillectomy and adenoidectomy History of tooth extraction all teeth History of total left hip replacement History of total right hip replacement History of transurethral resection of prostate Status post trigger finger release x2--one one each hand Past Anesthesia History No Hx of Anesthesia Complications (with exception to urinary retention ) and No Family Hx of Anesthesia Complications History of PONV No Hx of Motion Sickness and History of PONV (relieved with IV anti nausea medication ) Social History Smoking Status: Former smoker tobacco type: pipe Do You Dip or Chew Tobacco: No Smoking End Date: 1974 Hx Alcohol Use: Yes Alcohol type: beer alcohol intake frequency: 0-2 drinks per day (1 beer/day) substance use type: does not use Review of Systems Occ chronic cough- secondary to reflux. Patient denies chest pain, shortness of breath, dyspnea on exertion, wheezing, palpitations. No hx of seizures, stroke, OR, apnea/snoring. No hx of blood clots or blood transfusions Physical Exam Vital Signs VITALS BP 114/66 P 70 TEMP 98.4 SP02 97% RESP 16 Constitutional no acute distress ENMT Mouth: no TMJ clicking Thyromental Distance: > or= 3.5 Finger Breadths (3.5) Mallampati Class: II Full dentures on top and bottom (did educate patient that dentures usually removed with surgery- pt states dentures are difficult to remove but voices understanding and will discuss with anesthesiologist DOS Neck + limited neck extension (mild ) Respiratory normal respiratory effort; no respiratory distress Auscultation: lungs clear to auscultation bilaterally; no wheezes Cardiovascular Rate/Rhythm: regular rate and regular rhythm Heart Sounds: no murmur Vessels: no carotid bruit Heart sounds mildly diminished Musculoskeletal Spine: no pain with cervical ROM Extremities: extremities normal to inspection Psychiatric Orientation: alert Lab Results Anesthesia Preop Results Results Anesthesia Widget: WBC 4.91 K/uL (4.8-10.8) 04/04/21 Hgb 14.0 g/dL (14.0-18.0) 04/04/21 Hct 41.3 % (42-52) L 04/04/21 Plt 228 K/uL (130-400) 04/04/21 Na 141 mmol/L (136-145) 04/04/21 K 3.9 mmol/L (3.5-5.1) 04/04/21 Cl 110 mmol/L (98-107) H 04/04/21 CO2 25 mmol/L (21-32) 04/04/21 BUN 17 mg/dl (7-18) 04/04/21 Creat 0.93 mg/dl (0.6-1.4) 04/04/21 Glucose Level 122 mg/dl (70-99) H 04/04/21 PT 10.2 Seconds (9.0-12.0) 04/04/21 PTT 28.4 Seconds (21.0-31.0) 04/04/21 INR 1.0 (0.9-1.1) 04/04/21 Blood Type O Positive 04/04/21 Antibody Screen NEGATIVE 04/04/21 Testing Electrocardiogram Date: 10/11/20 SB with sinus arrhythmia at 59bpm. Chest X-Ray Date: 10/11/20 Findings: + NAD Punctate calcified granulomas within the left lung. Linear density at the left lung base favor scarring or atelectasis otherwise, lungs are clear. No pleural effusions. No pneumothorax. The heart is normal in size. Mild right apical pleural thickening. This is likely chronic. The heart is normal in size. Pulmonary Function Test Date: 04/07/19 Minimal obstructive lung defect. Airway obstruction is confirmed by decreased flow rate at 50% and 75% of the flow volume curve. Lung volumes are within normal limits. Diffusion capacity is within normal limits. FEV1 changed by 8%. FEF 25-75 changed by 19%. Interpreted as a mild response to bronchodilator.
--- NOTE | 2021-04-06 15:49 | History & Physical Report ---
Date of Service April 06, 2021 Assessment & Plan (1) Rotator cuff arthropathy of right shoulder: We will proceed with a right reverse shoulder arthroplasty. Postoperatively he will be placed in a sling and kept overnight in the hospital for postoperative medical management. He plans to use energy physical therapy upon discharge. History of Present Illness Chief Complaint: Rotator cuff arthropathy of the right shoulder. Primary Care Provider: Rodriguez Gutierrez MD Chris is a pleasant 85-year-old male who is been dealing with chronic worsening cuff arthropathy of the right shoulder. I am giving him injections in the office but they are no longer helping. His pain is becoming debilitating. Is affecting his quality of life. MRI of his shoulder did show a chronic retracted rotator cuff tear. He has a pseudoparalysis. After failing conservative treatment, he has elected proceed with a right reverse shoulder arthroplasty.. Allergies Allergy/AdvReac Type Severity Reaction Status Date / Time No Known Drug Allergies Allergy Verified 04/03/21 10:39 Home Medications Medication Instructions Recorded Confirmed Type food supplemt, lactose-reduced 1 ea PO QAM ml 05/19/19 04/03/21 History multivitamin with minerals-folic 200 mcg PO QAM tab 05/19/19 04/03/21 History acid 200 mcg chewable tablet omega-3 acid ethyl esters 1 gram 1 cap PO QDL cap 05/19/19 04/03/21 History capsule magnesium 200 mg tablet 200 mg PO 2XWK 03/04/20 04/03/21 History omeprazole 20 mg tablet,delayed 20 - 40 mg PO QAM tab 07/19/20 04/03/21 History release [place] [facility] 1 - 2 spray INTRANASAL HS PRN 09/20/20 04/03/21 History Higinio Back and Body 1 tab PO UD PRN 09/20/20 04/03/21 History terazosin 2 mg PO HS 09/20/20 04/03/21 History zinc 50 mg PO 2XWK 09/20/20 04/03/21 History cholecalciferol (vitamin D3) 10 mcg PO QAM 04/03/21 04/03/21 History [Vitamin D3] Past Med/Surg History Medical History Apical lung scarring "CALCIFIED POLYP OF LUNG (LEFT SIDE) LAST CT SCAN [facility] A[facility] [place]" Stable per patient Arthritis BPH (benign prostatic hyperplasia) Cervical stenosis of spine Degenerative disc disease GERD (gastroesophageal reflux disease) Well controlled and stable Hernia, hiatal Hx of thyroiditis 1969'S Hyperlipidemia Diet controlled SNHL (sensorineural hearing loss) No hearing aids Surgical History History of anesthesia reaction URINARY RETENTION History of bilateral cataract extraction History of carpal tunnel surgery of right wrist History of colonoscopy History of discectomy L4 History of elbow surgery right for pinched nerve History of elbow surgery left for pinched nerve History of esophagogastroduodenoscopy (EGD) History of fusion of lumbar spine X 2 History of mandibular surgery pins in place of upper jaw to hold teeth No issues with opening or closing jaw History of prostate biopsy History of tonsillectomy and adenoidectomy History of tooth extraction all teeth History of total left hip replacement History of total right hip replacement History of transurethral resection of prostate Status post trigger finger release x2--one one each hand Family History Father Coronary heart disease Myocardial infarction Sister Colon cancer Unknown No family history of bleeding disorder Other No family history of adverse response to anesthesia Denies family history of Ovarian cancer Prostate cancer Breast cancer Lung cancer Colorectal cancer Social History Smoking Status: Former smoker Tobacco Type: Pipe and Cigars Age Started Using Tobacco: 39; Age Quit Using Tobacco: 74; Second Hand Exposure: No; Hx Alcohol Use: Yes Alcohol type: beer Alcohol Intake Frequency Comment: has 1 every afternoon Preferred Language: [place]ar[place] Communication Ability: Effective Visual Impairment: Limited Hearing Ability: Normal Die Trimmer Required: No Beliefs That Will Affect Care: None marital status: Current Living Situation: Spouse current occupational status: retired How many Children do You have: 0 Feels Safe at Home: Yes Childhood Exposure to Second-Hand Smoke: No caffeine: Yes (drinks coffee daily ) Dental Care, Regularly: No Physical Activity Frequency: 3-4 Times per Week Physical Activity Frequency Comment: lifts weights, stationary bike, treadmill Seatbelt Use: always Sunscreen Use: Yes Assistive Devices: Denture - Upper, Denture - Lower, Glasses and Walker Review of Systems All systems reviewed & are unremarkable except as noted in HPI & below. Physical Exam On physical examination of the right shoulder, he has about 30 degrees forward elevation and 30 degrees of abduction. He has pain over the glenohumeral joint line. Passively I can get him through a full range of motion.. Constitutional WD/WN, vitals as above Eyes PERRL, conjunctivae normal, anicteric sclerae ENMT external ear and nose normal, oropharynx normal Neck trachea midline, no thyromegaly Respiratory normal respiratory effort Cardiovascular RRR, no murmur, no edema Gastrointestinal (Abdomen) normal bowel sounds, soft, nontender, no hepatosplenomegaly Psychiatric A+Ox3, euthymic affect Results & Data Results & Data Laboratory Results . Diagnostic Findings X-rays show signs of arthropathy of the right shoulder with superior migration of the humeral head on the glenoid. There is some osteoarthritis of the glenohumeral joint. PG Care Time/CCT Total # of Minutes Spent Total Time Spent with Patient: Total time spent is greater than 50% in coordination of care (as documented) at patient's floor/unit and/or counseling patient: Coding Level of Care Code None Diagnoses Rotator cuff arthropathy of right shoulder M12.811
[2021-04-07] MEDS ORDERED: ROPIVACAINE 0.5% HCL/PF 150 MG, BUPIVACAINE 0.75% MPF 20 ML, EPINEPHrine 30MG/30ML (OR ... INSTIL SCH ×2 (06:00→08:30)
[2021-04-07] MEDS ORDERED: TRANEXAMIC ACID 1,000 MG **IV Intra-op IV SCH (06:00)
[2021-04-07] MEDS ORDERED: ceFAZolin 1000MG 1,000 MG/7.5 ML SYR IV SCH (06:00)
[2021-04-07] MEDS ORDERED: dexAMETHasone 4 MG TAB PO SCH (06:00)
[2021-04-07] MEDS ORDERED: TRANEXAMIC ACID 1,000 MG **IV Pre-op IV SCH (06:00)
[2021-04-07] MEDS ORDERED: FAMOTIDINE 20 MG TAB PO SCH (06:00)
[2021-04-07] MEDS ORDERED: LR 60ML/HR IV SCH (06:00)
[2021-04-07] MEDS ORDERED: ACETAMINOPHEN 500 MG TAB PO SCH (06:00)
[2021-04-07] MEDS ORDERED: LR 15ML/HR IV SCH (06:00)
[2021-04-07] MEDS ORDERED: BUPIVACAINE 0.5 % 5 MG/1 ML PF 10ML VIAL ONE (06:37)
[2021-04-07] MEDS ORDERED: DEXAMETHASONE SOD INJ 4 MG/ML VIAL ONE (06:44)
[2021-04-07] MEDS ORDERED: LIDOCAINE 2% 2 ML VIAL/AMP(20MG/ML) INFIL ONE (06:44)
[2021-04-07] MEDS ORDERED: PROPOFOL IV EMULSION 10 MG/ML 20 ML VIAL IV ONE (06:44)
[2021-04-07] MEDS ORDERED: ONDANSETRON INJ 2 MG/ML 2 ML VIAL ONE (06:44)
[2021-04-07] MEDS ORDERED: fentaNYL citrate 100 MCG/2 ML VIAL ONE (06:45)
--- NOTE | 2021-04-07 06:51 | History & Physical Bridge Note ---
Date of Service April 07, 2021 History & Physical Bridge Note I have examined the patient, reviewed the History & Physical and in the interval since the performance of the History & Physical I have noted the following changes of clinical significance: no changes noted
[2021-04-07] MEDS ORDERED: SUGAMMADEX SODIUM 200 MG/2 ML VIAL IV ONE (07:28)
[2021-04-07] MEDS ORDERED: MIDAZOLAM HCL 1 MG/ML 2ML VIAL ONE (07:30)
[2021-04-07] MEDS ORDERED: ATROPINE SULFATE 0.1 MG/ML 10ML SYR IV PRN (07:32)
[2021-04-07] MEDS ORDERED: ONDANSETRON INJ 2 MG/ML 2 ML VIAL IV PRN ×2 (07:32→10:20)
[2021-04-07] MEDS ORDERED: fentaNYL citrate 100 MCG/2 ML VIAL IV PRN (07:32)
[2021-04-07] MEDS ORDERED: KETOROLAC TROMETHAMINE 15 MG/ML VIAL IV PRN (07:34)
[2021-04-07] MEDS ORDERED: ROCURONIUM BROMIDE 10 MG/ML 5 ML VIAL IV ONE (08:15)
--- NOTE | 2021-04-07 09:01 | Operative Report ---
PG Post Operative Report Pre & Post Diagnosis Operation Date: 04/07/21 08:00 Pre-Op Diagnosis: Rotator cuff arthropathy of right shoulder with tendinopathy of the long head of the biceps tendon Post-Op Diagnosis: Rotator cuff arthropathy of right shoulder with tendinopathy of the long head of the biceps tendon I identified the patient and participated in the time-out.: Yes Procedure Operation Date: 04/07/21 08:00 Actual Procedures p Right Reverse Total Shoulder Arthroplasty(Right) with open biceps tenodesis as a distinct and separate procedure (modifier 59)- Francisco Javier Hogan DO Surgeon Francisco Javier Hogan DO Motion Study Analyst Francisco Javier Marshall PAC Estimated Blood Loss 150 Findings Consistent with Post-Op Diagnosis Specimens Right humeral head Complications none Disposition Disposition: Recovery Room Indications Spike is a pleasant 85-year-old male who is been dealing with chronic worsening right shoulder pain and weakness. X-rays and clinical examination were diagnostic for cuff arthropathy of the right shoulder. After failing conservative treatment, he elected proceed with a right reverse shoulder replacement. Description of Procedure A CPT code modifier 59: The long head of the biceps tendon was enlarged and inflamed consistent with tendinopathy. A tenodesis was opted. This was a separate and distinct portion of the procedure. For these reasons, a CPT code modifier 59 will be added to this case. Implants used: I used a [employer] Comprehensive reverse total shoulder arthroplasty system with a size 14 press fit micro humeral stem, a +3 offset humeral tray and a standard humeral bearing, a 25 mm small augment baseplate with a 6.5 mm central screw and superior and inferior locking screws, and a size 40 mm eccentric glenosphere. Chris arrived at [facility] for the above procedure. He was seen in the preoperative holding area and the operative extremity was identified and signed. He was given a preoperative antibiotic, TXA, and an interscalene nerve block. He was taken back to the operating room, laid on table in supine position, and put under general anesthesia. He was then put into the beachchair position. The shoulder was then prepped and draped in sterile fashion. A timeout was done and the patient and the operative extremity was properly identified. A deltopectoral approach was used. Dissection was taken down through the fascia and the deltoid was retracted laterally and the conjoined tendon was retracted medially. The anterior shoulder was exposed. The biceps groove was opened up and the biceps tendon was examined extensively. The biceps tendon demonstrated enlargement and inflammatory changes consistent with longstanding inflammation in the context of osteoarthritis and cuff arthropathy. The long head of the biceps tendon was then tenodesed to the upper border of the pectoralis major. This was a separate and distinct portion of the procedure. The subscapularis was then directly released off the lesser tuberosity with a peel technique. The inferior capsule was released and the humeral head was dislocated. A canal finding reamer was sent down the center of the humeral canal. Sequential reaming up to a size 14 reamer was done. Off that reamer, a proximal humeral resection guide was placed. The proximal humerus was resected at 135 of inclination and 25 of retroversion. Osteophytes were then removed and the glenoid was exposed. Time was spent doing a complete capsular and labral release. The glenoid guide was then placed in the inferior aspect of the glenoid. A 3.2 mm Steinmann pin was then placed into the glenoid vault at 10 of inclination. The glenoid baseplate was then reamed. The final size 25 mm small augment baseplate was then impacted in the place. A 6.5 mm central screw was then placed followed by superior and inferior locking screws. A 40 mm eccentric glenosphere was then impacted into place. Surrounding soft tissues were then injected with 100 cc an orthopedic pain control cocktail. The proximal humerus was then exposed. Sequential broaching of the humerus up to a size 14 broach was done. Off that broach a +3 offset humeral tray was trialed. The shoulder was then reduced, brought through a full range of motion, and felt to be stable. The shoulder was then dislocated and the broach was removed. The final size 14 micro press-fit humeral stem was then impacted into place. A standard humeral bearing was then snapped onto a +3 offset humeral tray. The humeral tray was then impacted onto the humeral stem. The shoulder was once again reduced, bro ught through a full range of motion, and felt to be stable. The subscapularis was then tenodesed back to the lesser tuberosity with transosseous FiberWire sutures and side to side sutures with the arm in 45 of external rotation. A dilute betadyne lavage was then done for 3 minutes. The joint was then irrigated with normal saline solution. Hemostasis was obtained. The interval was closed with 2-0 Vicryl suture. The skin was then closed with 2-0 Vicryl and peña. A Silverlon dressing was placed and the arm was rested in a regular arm sling. He was then extubated and transferred to a hospital bed. He taken to the postanesthesia care unit in stable condition. He tolerated the procedure well. Francisco Javier Marshall PA-C, was present for the entire procedure. He was critical for patient positioning, prepping, draping, retraction exposure, wound closure and application of sterile dressing. I attest to the content of the Intraoperative Record and any orders documented therein. Any exceptions are noted below.
--- NOTE | 2021-04-07 10:04 | Anesthesiology Progress Note ---
Date of Service April 07, 2021 Anesthesia Post Procedure Vital Signs Vital Signs: Temp Pulse Pulse Resp BP Pulse Ox 04/07/21 09:50 36.4 C L 66 21 143/71 H 95 04/07/21 09:40 68 17 102/82 94 04/07/21 09:30 68 17 112/85 95 04/07/21 09:21 36.1 C L 69 18 112/60 98 04/07/21 06:01 36.8 C 75 18 155/90 H 94 Transfer of Care Handoff Completed per policy Notes Mental Status: alert / awake / arousable Patient Amnestic to Procedure: Yes Nausea / Vomiting: adequately controlled Pain: adequately controlled Airway Patency, RR, SpO2: stable & adequate BP & HR: stable & adequate Hydration State: stable & adequate Anesthetic Complications: no major complications apparent
--- NOTE | 2021-04-07 10:08 | XRay Report ---
XR shoulder RT min 2V routine CLINICAL HISTORY: Post shoulder surgery COMPARISON STUDY: MR right shoulder03/01/2021. FINDINGS: Status post reverse right total shoulder arthroplasty. The hardware appears intact. No frac ture or dislocation. Skin peña are in place. Soft tissue gas within the right shoulder consistent with the recent postoperative change. IMPRESSION: Status post reverse right total shoulder arthroplasty. No evidence for hardware complica tion. ACT 112: Negative or not required by law. Electronically signed by: Jovan Hughes M.D. 04/07/2021 10:07 AM
[2021-04-07] MEDS ORDERED: METOCLOPRAMIDE HCL INJ 5 MG/ML 2 ML VIAL IV PRN (10:20)
[2021-04-07] MEDS ORDERED: MAGNESIUM HYDROXIDE SUSP 30 ML UDC PO PRN (10:20)
[2021-04-07] MEDS ORDERED: HYDROmorphone INJ 0.5 MG/0.5 ML SYR IV PRN (10:20)
[2021-04-07] MEDS ORDERED: oxyCODONE HCL IR 5 MG TAB (IMMEDIATE RELEASE) PO PRN (10:20)
[2021-04-07] MEDS ORDERED: bisacodyL 10 MG SUPP PR PRN (10:20)
[2021-04-07] MEDS ORDERED: NALOXONE HCL 0.4 MG/1 ML VIAL/CARP IV PRN (10:20)
[2021-04-07] MEDS ORDERED: ceFAZolin 2,000 MG/15 ML IV PUSH IV ONE (11:58)
[2021-04-07] MEDS: SODIUM CHLORIDE 0.9% 1000ML 1,000 ML IV SCH ×2 (14:44→22:39)
[2021-04-07] MEDS: ACETAMINOPHEN 500 MG TAB PO SCH ×2 (16:00→20:10)
[2021-04-07] MEDS: ceFAZolin 2000MG 2,000 MG/15 ML SYR IV SCH ×2 (16:20→23:26)
[2021-04-07] MEDS: DOCUSATE SODIUM 100 MG CAP PO SCH (20:11)
[2021-04-07] MEDS ORDERED: SENNA 8.6 MG TAB PO SCH (21:00)
[2021-04-07] MEDS ORDERED: TERAZOSIN HCL 1 MG CAP PO SCH (21:00)
[2021-04-08] MEDS: ACETAMINOPHEN 500 MG TAB PO SCH (05:20)
--- NOTE | 2021-04-08 07:37 | Orthopedic Progress Note ---
Date of Service April 08, 2021 Assessment & Plan (1) Status post reverse arthroplasty of right shoulder: Overall he is doing very well. Is not having much pain in the right shoulder. He will be seen by physical therapy today for ambulation and range of motion exercises. He can be discharged home later today. He will follow-up with orthopedics in 2 weeks. Subjective Spike was seen and examined at bedside this morning. Overall he is doing well. Is not having much pain in the right shoulder. He was able to get some sleep last night. He has no complaints.. Review of Systems All systems reviewed & are unremarkable except as noted in HPI & below. Physical Exam On physical examination of the right shoulder, the dressing is clean and dry. He is wearing his sling as instructed. His radial, median, and ulnar nerves are checked intact at his wrist. His axillary nerve was not checked yet.. Results & Data Results & Data Laboratory Results . Diagnostic Findings Postoperative x-rays of the right shoulder show the prosthesis to be in anatomic alignment without any evidence of fracture, dislocation, or loosening. PG Care Time/CCT Total # of Minutes Spent Total Time Spent with Patient: Total time spent is greater than 50% in coordination of care (as documented) at patient's floor/unit and/or counseling patient: Coding Level of Care Code 96825 Post Operative Follow-Up Diagnoses Status post reverse arthroplasty of right shoulder Z96.611
--- NOTE | 2021-04-08 07:38 | Discharge Summary ---
Date of Service April 08, 2021 Admission HPI (Per Admitting) Chris is a pleasant 85-year-old male who is been dealing with chronic worsening cuff arthropathy of the right shoulder. I am giving him injections in the office but they are no longer helping. His pain is becoming debilitating. Is affecting his quality of life. MRI of his shoulder did show a chronic retracted rotator cuff tear. He has a pseudoparalysis. After failing conservative treatment, he has elected proceed with a right reverse shoulder arthroplasty.. Admission Exam (Per Admitting) On physical examination of the right shoulder, he has about 30 degrees forward elevation and 30 degrees of abduction. He has pain over the glenohumeral joint line. Passively I can get him through a full range of motion.. Principal Diagnosis Same as "Discharge Diagnosis" noted below under Discharge Instructions. Discharge Exam On physical examination of the right shoulder, the dressing is clean and dry. He is wearing his sling as instructed. His radial, median, and ulnar nerves are checked intact at his wrist. His axillary nerve was not checked yet.. Discharge Data Procedures Performed Operation Date: 04/07/21 08:00 Actual Procedures p Right Reverse Total Shoulder Arthroplasty(Right) - Francisco Javier Hogan DO Ordered Studies 04/07/21 05:00 US - OR guided needle placemen Routine Hospital Course (1) Status post reverse arthroplasty of right shoulder: On 04/07/2021 Spike arrived at [facility] and underwent a right reverse shoulder replacement without complication. He had a general anesthetic and a right interscalene nerve block. Postoperatively he was placed in a sling and transferred to the general orthopedic floors. His hospital course was uneventful. On postop day #1 his vital signs were stable and his pain was well controlled. He was able to participate well with physical therapy doing ambulation and range of motion exercises. He was then discharged home. He will follow-up with orthopedics in 2 weeks. PG Care Time/CCT Total # of Minutes Spent Total Time Spent with Patient: Total time spent is greater than 50% in coordination of care (as documented) at patient's floor/unit and/or counseling patient: Discharge Plan Discharge Items Patient Disposition: Home - Home Health Services Reason For Visit: DJD Right Shoulder Discharge Diagnosis: Right reverse shoulder replacement Activity: As commented below Non-emergency contact: Surgeon Call non-emergency contact if: your wound has increased redness and your wound has increased drainage Follow-up/Referrals: Rodriguez Gutierrez MD [Primary Care Provider] - Diet: Regular Addtl Attending Provider Instructions: Activity and Therapy Recommendations: * If you are using [facility] then therapy will be provided at your home until they feel you have accomplished all of your goals. * If you are using [facility] then Physical Therapy will be provided until they feel you are ready to start Outpatient Physical Therapy. * If you are not using home therapy then Outpatient Physical Therapy should start about 3-5 days from your day of surgery. Therapy will last about 8-12 weeks * Wear your sling for 3 weeks, unless otherwise instructed. You may remove your sling to shower and to dress, but otherwise, you should be in your sling at all times, including while sleeping * The shoulder replacement is very stable and you can use your hand while in the sling * You were shown a series of exercises in the hospital. Do these exercises daily including the exercises you were shown in physical therapy. Medications: * Narcotic You will likely be sent home from the hospital with a prescription for the narcotic pain medication that worked best throughout your stay. * Other medications may be prescribed for specific circumstances. If you have any questions, please call the office at . * Resume previous home medications unless otherwise instructed Dressing Care: Leave the Silverlon dressing in place for 7 days. After 7 days you may remove the dressing. If the incision is not draining then you may leave the peña open to air. If there is a little bit of drainage or if the peña are getting stuck on your clothing then cover the incision with a dry dressing. The peña will be removed at your 2 week follow-up appointment. Showering: You may shower with the Silverlon dressing in place. Do not let the shower spray hit the dressing directly. Pat the Silverlon dressing dry. If the dressing becomes wet underneath, then simply remove the dressing. Keep the incision dry until you are 7 days out from the day of surgery. After 7 days you may remove the Silverlon dressing and shower with the peña exposed. Let soapy water run over the peña and pat them dry. Do not scrub or soak the incision. Things To Watch For: * Drainage from the incision site that occurs more than one week after your surgery. * Increased redness at the incision site. * Fever above 102 degrees Fahrenheit. * Unusual chest pain or shortness of breath. * Call [facility] at with any of the above problems Follow-Up Visit: Follow-up with Dr. Hogan's PA (Francisco Javier Marshall) 2-3 weeks after your day of surgery. He will remove your peña and answer any questions. If you have any additional questions or concerns, Dr Hogan is usually in the office at the same time and will be available An appointment was probably scheduled when you signed-up for surgery in the office. If you have any questions call More detailed instructions as well as Frequently Asked Questions were provided in a folder by our office when you signed-up for surgery. Please review these instructions when you get home. If you have any further questions or concerns, please feel free to call the office at [phone] Pending Studies at Discharge: No Stand-Alone Forms: My [facility], Smoking Cessation Medications and DC Order Prescriptions: New oxycodone 5 mg Tablet 5 mg PO Q4H PRN (Reason: pain) Qty: 30 RF: 0 Continued magnesium 200 mg tablet 200 mg PO 2XWK RF: 0 omeprazole 20 mg tablet,delayed release (DR/EC) 20 - 40 mg PO QAM RF: 0 Ensure liquid 1 ea PO QAM RF: 0 omega-3 acid ethyl esters 1 gram capsule 1 cap PO QDL RF: 0 Adult Multivitamin Gummies 200 mcg tablet,chewable 200 mcg PO QAM RF: 0 zinc 50 mg Tablet 50 mg PO 2XWK RF: 0 [place] Back [facility] Body 500-32.5 mg Tablet 1 tab PO UD PRN (Reason: Pain) RF: 0 terazosin 2 mg capsule 2 mg PO HS RF: 0 [place] [facility] 2.65 % Aerosol,[place] 1 - 2 spray INTRANASAL HS PRN (Reason: Congestion) RF: 0 cholecalciferol (vitamin D3) [Vitamin D3] 10 mcg (400 unit) Tablet,Chewable 10 mcg PO QAM RF: 0 Discharge Orders: Discharge Order (Routine); Ordered 04/08/21 Ordered By: Francisco Javier Hogan Admission Data Admit Date/Time: 04/07/21 09:26 Attending Provider: Francisco Javier Hogan Admit Provider: Francisco Javier Hogan Primary Care Provider: Rodriguez Gutierrez
[2021-04-08] MEDS ORDERED: dexAMETHasone 4 MG TAB PO SCH (08:00)
[2021-04-08] MEDS: DOCUSATE SODIUM 100 MG CAP PO SCH (08:45)
[2021-04-08] MEDS ORDERED: MULTIVITAMIN TAB PO SCH (09:00)
== END 2021-04-08 11:18 | disposition home or self-care (01) | DRG 483 ==
LOC: ASU 05:30 → 3E 09:26

== ENCOUNTER 2023-01-02 11:25 | Observation (INO) ==
--- NOTE | 2023-01-02 11:40 | Emergency Department Note ---
Impression & Plan Acute pain of left hip, Low back pain, Left leg weakness ED Provider Note Name: ELVIS SPARKS Age: 87 Sex: M Arrives Via: Ambulance Informant: Patient, ED Provider: Carlos Hayes MD Chief Complaint: Left hip pain Impression: As per impressions above Medical Decision Makin-year-old gentleman with history of bilateral hip replacements about 15 years ago as well as a history of S1-S3 radioablation due to pain. He arrives for evaluation of rapid worsening left hip pain. The anterior left hip and unable to move leg without severe pain. X-rays obtained of the left hip reveal no fracture dislocation or issue with the prosthesis. I attempted to ambulate patient and he has severe weakness of his left quadriceps. He furthermore has some decreased sensation over the medial aspect of his left thigh. He is not having loss of bowel or bladder control. Severity of his weakness he was obtained he was given IV Decadron and an MRI of the lumbar spine was ordered. He has no abdominal tenderness palpation he has a good pulse in both legs he has no evidence of rash at this time. Signed out to Dr Solorzano pending further work-up Prior Medical Record and Triage/Nursing Notes reviewed by Me External chart review completed by me Differentials:Fracture, dislocation, spinal radiculopathy, block phenomenon, infection, multiple other pathologies considered Vital Signs: reviewed and remarkable for no significant abnormalities Interventions: Dilaudid 0.5 mg IV, Decadron 10 mg IV Labs:Reviewed and remarkable for no significant abnormalities Imaging:X-rays of the left hip and pelvis as per my interpretation. Bilateral hip prosthesis are intact without fracture, dislocation or other concerning findings. Plan: Disposition: Signed out to Dr Solorzano. Condition: Good History of Present Illness:87-year-old gentleman arrives for evaluation of left hip pain. Patient notes history of bilateral hip replacements about 15 years ago. States he has not had any issues with them. He lives at home without any issues. He states he had walked out side to take out the trash this morning walked back and and sat down. On sitting down he noticed an unusual pop in his left hip. Developed worsening pain. Unable to stand up due to the amount of pain. Did take an Oxy IR with mild improvement. Called 911 due to inability to walk due to the pain. Note some mild lower back pain but nothing significant. Denies any radiation of pain. Pain in the left hip is more anterior. He notes that he feels like the hip is in the right place. No falls, trauma, injuries. He takes no blood thinners. Past History:See Below Home Medications:See Below Allergies:No known drug allergy Vitals:Blood Pressure: 152/74, Pulse 59, RR 16, T 36.5C, O2 96% on RA Physical Exam: GENERAL: Patient is uncomfortable appearing and in moderate distress. EYES: No scleral icterus, unremarkable pupils. NECK: No masses appreciated, nomeningismus, trachea is midline. RESPIRATORY: No dyspnea. Clear to auscultation and equal bilaterally. No wheeze, no rhonchi. CARDIOVASCULAR: Regular rate and rhythm.No murmurs, rubs, gallops appreciated. GASTROINTESTINAL: Abdomen soft, non-tender, no peritonitis.Bowel sounds positive.No masses appreciated. EXTREMITIES: TTP over right lateral and anterior hip. Severe pain on trying to ROM right hip. Distal n/v intact. Otherwise normal motion all extremities, no cyanosis, no edema. NEUROLOGIC: Alert and oriented, no focal neurologic deficit appreciated. Patient does have some decrease sensation over the left medial thigh that is perceived. He has significant weakness of the left quadriceps muscle to the p oint where he can no longer bear weight on the leg. SKIN: No rash, no jaundice, no diaphoresis. PSYCH: Appropriate GCS: 15 ED Course: Times/Reassessments: Patient was eventually starting feel better following x- rays which were unremarkable. I did attempt to ambulate patient and he is nearly unable to bear any weight on the left leg to get to the bathroom requires significant amount of assist. Agreeable to MRI. 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) LAST CT SCAN 2 YEARS AGO AT [facility]" Stable per patient Arthritis BPH (benign prostatic hyperplasia) Cervical stenosis of spine Degenerative disc disease GERD (gastroesophageal reflux disease) Well controlled and stable Hernia, hiatal Hx of thyroiditis 1969' Hyperlipidemia Diet controlled Postlaminectomy syndrome of lumbosacral region SNHL (sensorineural hearing loss) No hearing aids Surgical History History of anesthesia reaction URINARY RETENTION History of bilateral cataract extraction History of carpal tunnel surgery of right wrist History of colonoscopy History of discectomy L4 History of elbow surgery right for pinched nerve History of elbow surgery left for pinched nerve History of esophagogastroduodenoscopy (EGD) History of fusion of lumbar spine X 2 History of mandibular surgery pins in place of upper jaw to hold teeth No issues with opening or closing jaw History of prostate biopsy History of tonsillectomy and adenoidectomy History of tooth extraction all teeth History of total left hip replacement History of total right hip replacement History of transurethral resection of prostate Status post trigger finger release x2--one one each hand Family History Father Coronary heart disease Myocardial infarction Sister Colon cancer Unknown No family history of bleeding disorder Other No family history of adverse response to anesthesia Denies family history of Ovarian cancer Prostate cancer Breast cancer Lung cancer Colorectal cancer Social History Smoking Status: Never smoker Tobacco Type: Pipe and Cigars Age Started Using Tobacco: 39; Age Quit Using Tobacco: 74; Second Hand Exposure: No; Hx Alcohol Use: Yes Alcohol type: beer Alcohol Intake Frequency Comment: has 1 every afternoon Preferred Language: Vincentian Communication Ability: Effective Visual Impairment: Limited Hearing Ability: 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 Required: No Beliefs That Will Affect Care: None marital status: Current Living Situation: Spouse current occupational status: retired How many Children do You have: 0 Feels Safe at Home: Yes Childhood Exposure to Second-Hand Smoke: No caffeine: Yes (drinks coffee daily ) Dental Care, Regularly: No Physical Activity Frequency: 3-4 Times per Week Physical Activity Frequency Comment: lifts weights, stationary bike, treadmill Seatbelt Use: always Sunscreen Use: Yes Assistive Devices: Glasses Allergies Allergies Allergy/AdvReac Type Severity Reaction Status Date / Time No Known Drug Allergies Allergy Verified 01/02/23 14:41 Home Meds Home Medications Medication Instructions Recorded Confirmed food supplemt, lactose-reduced 1 ea PO QAM 05/19/19 01/02/23 (Ensure oral liquid) multivitamin with minerals-folic 200 mcg PO QAM 05/19/19 01/02/23 acid 200 mcg chewable tablet (Adult Multivitamin Gummies) omega-3 acid ethyl esters 1 gram 1 cap PO QDL 05/19/19 01/02/23 capsule magnesium 200 mg tablet 200 mg PO 2XWK 03/04/20 01/02/23 omeprazole 20 mg tablet,delayed 40 mg PO QAM 07/19/20 01/02/23 release aspirin-caffeine 500 mg-32.5 mg 1 tab PO UD PRN Pain 09/20/20 01/02/23 tablet ([facility]) sodium chloride 2.65 % nasal spray 1 - 2 spray intranasal HS PRN 09/20/20 01/02/23 aerosol ([place] [facility]) Congestion cholecalciferol (vitamin D3) 10 10 mcg PO QAM 04/03/21 01/02/23 mcg (400 unit) chewable tablet (Vitamin D3) terazosin 2 mg capsule 4 mg PO HS 02/27/22 01/02/23 zinc acetate 50 mg (zinc) capsule 50 mg PO 2XWK 01/02/23 01/02/23 Results & Data (ED) Vital Signs Vital Signs - 24 hr 01/02/23 11:29 01/02/23 12:25 01/02/23 12:23 Temperature 36.5 C Temperature Source Oral Pulse Rate 59 L 47 L 48 L Pulse Rate from SpO2 Sensor 49 L Pulse Rhythm Regular Respiratory Rate 16 18 Respiratory Effort / Characteristics Non-Labored Spontaneous Respiratory Depth Normal Respiratory Pattern Regular Blood Pressure 152/74 H Blood Pressure Mean 100 Pulse Oximetry 96 96 Oxygen Delivery Method Room Air Sepsis Recent Fever Within 48 Hours No Sepsis New/Unexplained Change in Mental Status No Sepsis Action Taken by Nursing No Action Required 01/02/23 12:30 01/02/23 12:30 01/02/23 12:40 Temperature Temperature Source Pulse Rate 49 L 52 L Pulse Rate from SpO2 Sensor 49 L 52 L Pulse Rhythm Respiratory Rate 17 20 Respiratory Effort / Characteristics Respiratory Depth Respiratory Pattern Blood Pressure 135/67 Blood Pressure Mean 89 Pulse Oximetry 96 96 Oxygen Delivery Method Sepsis Recent Fever Within 48 Hours Sepsis New/Unexplained Change in Mental Status Sepsis Action Taken by Nursing 01/02/23 12:50 01/02/23 13:00 01/02/23 13:00 Temperature Temperature Source Pulse Rate 50 L 49 L Pulse Rate from SpO2 Sensor 50 L 52 L Pulse Rhythm Respiratory Rate 17 17 Respiratory Effort / Characteristics Respiratory Depth Respiratory Pattern Blood Pressure 136/72 Blood Pressure Mean 93 Pulse Oximetry 96 95 Oxygen Delivery Method Sepsis Recent Fever Within 48 Hours Sepsis New/Unexplained Change in Mental Status Sepsis Action Taken by Nursing 01/02/23 13:10 Temperature Temperature Source Pulse Rate 52 L Pulse Rate from SpO2 Sensor 53 L Pulse Rhythm Respiratory Rate 17 Respiratory Effort / Characteristics Respiratory Depth Respiratory Pattern Blood Pressure Blood Pressure Mean Pulse Oximetry 96 Oxygen Delivery Method Sepsis Recent Fever Within 48 Hours Sepsis New/Unexplained Change in Mental Status Sepsis Action Taken by Nursing Laboratory Data 01/02/23 13:49 01/02/23 13:49 Lab Results 01/02/23 01/02/23 Range/Units 13:49 13:49 WBC 10.75 (4.8-10.8) K/ul RBC 4.66 L (4.70-6.10) M/uL Hgb 14.7 (14.0-18.0) g/dl Hct 43.1 (42.0-52.0) % MCV 92.5 (80.0-100.0) fL MCH 31.5 (25.0-34.0) pg MCHC 34.1 (32.0-36.0) g/dL RDW Std Deviation 47.0 H (36.4-46.3) fL RDW Coeff of Mary 13.7 (11.5-14.5) % Plt Count 217 (130-400) K/uL MPV 10.9 (9.4-12.4) fL Immature Gran % (Auto) 0.6 % Neut % (Auto) 77.1 % Lymph % (Auto) 11.8 % [place] % (Auto) 9.8 % Eos % (Auto) 0.2 % Baso % (Auto) 0.5 % Neut # (Auto) 8.30 H (1.40-6.50) K/uL Lymph # (Auto) 1.27 (1.2-3.4) K/uL [place] # (Auto) 1.05 H (0.11-0.59) K/uL Eos # (Auto) 0.02 (0-0.50) K/uL Baso # (Auto) 0.05 (0-0.2) K/uL Immature Gran # (Auto) 0.06 (0.01-0.20) K/uL Sodium 141 (136-145) mmol/L Potassium 4.2 (3.5-5.1) mmol/L Chloride 108 H (98-107) mmol/L Carbon Dioxide 26 (21-32) mmol/L Anion Gap 7 (3-11) BUN 16 (6-23) mg/dl Creatinine 0.87 (0.6-1.4) mg/dl Est Cr Clr Drug Dosing 49.5 ml/min Est GFR ( Amer) 89.3 ml/min Est GFR (Non-Af Amer) 77.1 ml/min BUN/Creatinine Ratio 18.4 (10-20) Glucose 110 H (70-99(Fasting)) mg/dl Calcium 9.3 (8.5-10.1) mg/dl Administered Medications Discontinued Medications Dexamethasone Sodium Phosphate (DexamethasonePf 10 Mg/Ml Vial) 10 mg IV NOW ONE Stop: 01/02/23 13:44 Last Admin: 01/02/23 14:00 Dose: 10 mg Documented By: DELMAR Hydromorphone HCl (Hydromorphone Inj 0.5 Mg/0.5 Ml Syr) 0.5 mg IV NOW STA Stop: 01/02/23 13:44 Last Admin: 01/02/23 14:00 Dose: 0.5 mg Documented By: DELMAR Imaging Data Radiologist's Impression: Hip/Pelvis X-Ray 01/02/23 11:37 XR hip LT 2V w pelvis HISTORY: 87 years-old Male fall, left hip pain acute left-sided hip pain COMPARISON: Pelvis and hip radiographs 04/18/2022 TECHNIQUE: AP view of the pelvis with 2 views of the left hip FINDINGS: Unremarkable appearance of the bilateral hip total joint arthroplasties. Demineralized appearance of the bones. No acute fracture or dislocation. Partially imaged fusion hardware of the lumbar spine with discectomy changes. Vascular calcifications. IMPRESSION: 1. No acute fracture or dislocation. 2. Unremarkable appearance of the bilateral hip total joint arthroplasties. ACT 112: Negative or not required by law. The above report was generated using voice recognition software. It may contain grammatical, syntax or spelling errors. Electronically signed by: Florentino Rodriguez M.D. 01/02/2023 1:34 PM Discharge Plan Visit Data Chief Complaint: Hip Pain Stated Complaint: L HIP PAIN ED Provider: Carlos Hayes Discharge Problem: Acute pain of left hip, Low back pain, Left leg weakness Forms Stand Alone Forms: [facility] Prescriptions Prescriptions: No Action magnesium 200 mg tablet 200 mg PO 2XWK omeprazole 20 mg tablet,delayed release (DR/EC) 40 mg PO QAM Ensure liquid 1 ea PO QAM omega-3 acid ethyl esters 1 gram capsule 1 cap PO QDL Adult Multivitamin Gummies 200 mcg tablet,chewable 200 mcg PO QAM [facility] 500-32.5 mg Tablet 1 tab PO UD PRN (Reason: Pain) [place] [facility] 2.65 % Aerosol,[place] 1 - 2 spray INTRANASAL HS PRN (Reason: Congestion) terazosin 2 mg capsule 4 mg PO HS cholecalciferol (vitamin D3) [Vitamin D3] 10 mcg (400 unit) Tablet,Chewable 10 mcg PO QAM zinc acetate 50 mg (zinc) Capsule 50 mg PO 2XWK Referrals Referrals: Rodriguez Gutierrez MD [Primary Care Provider] - Low back pain Qualifiers: Chronicity: acute Back pain laterality: left Sciatica presence: with sciatica Sciatica laterality: sciatica of left side Qualified Code(s): M54.42 - Lumbago with sciatica, left side
--- NOTE | 2023-01-02 13:36 | XRay Report ---
XR hip LT 2V w pelvis HISTORY: 87 years-old Male fall, left hip pain acute left-sided hip pain COMPARISON: Pelvis and hip radiographs 04/18/2022 TECHNIQUE: AP view of the pelvis with 2 views of the left hip FINDINGS: Unremarkable appearance of the bilateral hip total joint arthroplasties. Demineralized appearance of the bones. No acute fracture or dislocation. Partially imaged fusion hardware of the lumbar spine wit h discectomy changes. Vascular calcifications. IMPRESSION: 1. No acute fracture or dislocation. 2. Unremarkable appearance of the bilateral hip total joint arthroplasties. ACT 112: Negative or not required by law. The above report was generated using voice recognition software. It may contain grammatical, syntax o r spelling errors. Electronically signed by: Florentino Rodriguez M.D. 01/02/2023 1:34 PM
[2023-01-02] MEDS ORDERED: HYDROmorphone INJ 0.5 MG/0.5 ML SYR IV STA (13:43)
[2023-01-02] MEDS ORDERED: dexAMETHasone**PF** 10 MG/ML VIAL IV ONE (13:43)
[2023-01-02 14:23] LABS: Basophils # (auto) 0.05 K/uL (0-0.2); Basophils % (auto) 0.5 %; Eosinophils # (auto) 0.02 K/uL (0-0.50); Eosinophils % (auto) 0.2 %; Hematocrit (blood only) 43.1 % (42.0-52.0); Hemoglobin 14.7 g/dl (14.0-18.0); Immature Granulocytes # (auto) 0.06 K/uL (0.01-0.20); Immature Granulocytes % (auto) 0.6 %; Lymphocytes # (auto) 1.27 K/uL (1.2-3.4); Lymphocytes % (auto) 11.8 %; Mean Corpuscular Hemoglobin 31.5 pg (25.0-34.0); Mean Corpuscular Hgb Conc 34.1 g/dL (32.0-36.0); Mean Corpuscular Volume 92.5 fL (80.0-100.0); Mean Platelet Volume 10.9 fL (9.4-12.4); Monocytes # (auto) 1.05 K/uL (0.11-0.59); Monocytes % (auto) 9.8 %; Neutrophils % (auto) 77.1 %; Platelet Count 217 K/uL (130-400); RDW Coefficient of Variation 13.7 % (11.5-14.5); Red Blood Count 4.66 M/uL (4.70-6.10); White Blood Count 10.75 K/ul (4.8-10.8)
[2023-01-02 14:24] LABS: BUN Creatinine Ratio 18.4 (10-20); Calcium 9.3 mg/dl (8.5-10.1); Creatinine Clr Calc Pharmacy 49.5 ml/min; Est GFR (African American) 89.3 ml/min; Est GFR (Non-African American) 77.1 ml/min; Potassium 4.2 mmol/L (3.5-5.1)
[2023-01-02] MEDS ORDERED: HYDROmorphone INJ 0.5 MG/0.5 ML SYR IV PRN (15:04)
--- NOTE | 2023-01-02 15:42 | History & Physical Report ---
Date of Service January 02, 2023 Assessment & Plan (1) Acute pain of left hip: Plan: -Admit to med/surge -The patient is currently afebrile, hemodynamically stable, and stable on RA -Experienced severe left hip/thigh pain earlier today after walking up his driveway and sitting, no recent trauma/falls -Xray of the BL hips was negative for acute trauma -MRI of the lumbar spine shows severe intervertebral disc space narrowingwith [id number] left neural foraminal narrowing -No red flag symptoms at this time -Patient is currently unable to ambulate safely due to pain/discomfort -S/P 10 mg IV dexamethasone and 1 mg IV Dilaudid without relief -Will start 650 mg PO tylenol q6h scheduled, 5 mg PO Flexeril TID, lidocaine patch and heating pad for now -Could consider pain management consult tomorrow if no resolution of his symptoms -PT/OT consults placed, fall precautions ordered -BL SCD's and sub-q lovenox for DVT PPX -AM CBC and BMP (2) BPH loc w urin obs/LUTS: Plan: -Continue terazosin (3) GERD (gastroesophageal reflux disease): Plan: -Continue omeprazole Plan -The patient was discussed with Dr. Gaspar at the time of the admission History of Present Illness Chief Complaint: Left hip pain Primary Care Provider: Rodriguez Gutierrez MD Chris is an 87 year old male with a PMH significant for lumbar spinal stenosis S/P prior laminectomy and fusion with revision with resultant L2-[address] Hook in 2020, post laminectomy syndrome and sacroiliitis, (follows with pain management), BPH, GERD with previous Duodenal Ulcer, and hyperlipidemia who presented to the [facility] ED on 01/02/23 with chief complaints of left hip pain. In the ED the patient was found to be afebrile, hemodynamically stable, and stable on RA. Labs were remarkable for a CBC WNL, stable Cr of 0.87 with stable electrolytes. Xray of the left hip was read as "1. No acute fracture or dislocation. 2. Unremarkable appearance of the bilateral hip total joint arthroplasties.". In the Ed the patient was given a total of 1 mg IV Dilaudid and 10 mg IV dexamethasone but he was unable to ambulate. The ED requested admission for PT/OT and ordered an MRI of the lumbar spine for further evaluation. A discussion was held between Hospital medicine and the ED staff, if they patient's MRI would reveal abnormalities requiring a spinal surgeon the ED would coordinate transfer as [facility] does not have an enthone solder stripper spinal surgeon at this time. At the time of the exam the patient had just returned from his MRI and was in no acute distress with his sitting bedside. The patient states that he woke up today in his normal state of health around 0600. He went for his usually walk around his home around 0700 and then rested on the couch. After sitting and resting the patient began to experience pain running across his low back with radiation into the left buttocks, across his anterior left thigh/groin, and down to his knee. When asked, he confirms that this is the distribution of his typical chronic back pain, for which he sees pain management. However, the pain is more severe today and he initial noticed some numbness/tingling in his thigh when initially sitting down. He took an oxycodone which provided mild/temporary relief of his symptoms but they shortly returned, which led to him coming to the ED. At the time of my exam the patient says his symptoms are controlled at rest. However, he expediencies significant exacerbation of the symptoms with movement of his back or left leg. He attempted to ambulate to the bathroom approximately 2 hours prior but had weakness in his left leg and required assistance by his nurse. He denies saddle anesthesia, loss of bowel or bladder function, and recent trauma. I discussed coming into the hospital for symptom management and to be seen for PT/OT so we can plan a safe discharge home, he and his are in agreement with that plan pending results of his lumbar spine MRI. The patient is a Full Code and would want his to make medical decisions for him if he could not make them himself. Per chart review, the patient last received an Right L5 dorsal ramus S1 S2 S3 lateral branch radiofrequency ablation with Dr. Matos on 09/11 and Radio Frequency Ablation left L5,Dorsal Ramus, S1,S2,S3 Lateral Branches Water Cooled with Dr. Matos on 09/13/23. The patient experienced a small burn at the site of the left ablation which has been monitored closely by pain management. His has been caring for the burn daily and confirms that it has almost completely healed. Please refer to Dr. Gaspar's attestation for any changes to the treatment plan Allergies Allergy/AdvReac Type Severity Reaction Status Date / Time No Known Drug Allergies Allergy Verified 01/02/23 14:41 Home Medications Medication Instructions Recorded Confirmed Type food supplemt, lactose-reduced 1 ea PO QAM 05/19/19 01/02/23 History (Ensure oral liquid) multivitamin with minerals-folic 200 mcg PO QAM 05/19/19 01/02/23 History acid 200 mcg chewable tablet (Adult Multivitamin Gummies) omega-3 acid ethyl esters 1 gram 1 cap PO QDL 05/19/19 01/02/23 History capsule magnesium 200 mg tablet 200 mg PO 2XWK 03/04/20 01/02/23 History omeprazole 20 mg tablet,delayed 40 mg PO QAM 07/19/20 01/02/23 History release aspirin-caffeine 500 mg-32.5 mg 1 tab PO UD PRN Pain 09/20/20 01/02/23 History tablet ([facility]) sodium chloride 2.65 % nasal spray 1 - 2 spray intranasal HS PRN 09/20/20 01/02/23 History aerosol ([facility]) Congestion cholecalciferol (vitamin D3) 10 10 mcg PO QAM 04/03/21 01/02/23 History mcg (400 unit) chewable tablet (Vitamin D3) terazosin 2 mg capsule 4 mg PO HS 02/27/22 01/02/23 History zinc acetate 50 mg (zinc) capsule 50 mg PO 2XWK 01/02/23 01/02/23 History Past Med/Surg History Medical History (Updated 01/02/23 @ 15:48 by Kendall Luis PA-C) Apical lung scarring "CALCIFIED POLYP OF LUNG (LEFT SIDE) LAST CT SCAN 2 YEARS AGO AT [facility]" Stable per patient Arthritis BPH (benign prostatic hyperplasia) Cervical stenosis of spine Degenerative disc disease GERD (gastroesophageal reflux disease) Well controlled and stable Hernia, hiatal Hx of thyroiditis 1969' Hyperlipidemia Diet controlled Postlaminectomy syndrome of lumbosacral region SNHL (sensorineural hearing loss) No hearing aids Surgical History History of anesthesia reaction URINARY RETENTION History of bilateral cataract extraction History of carpal tunnel surgery of right wrist History of colonoscopy History of discectomy L4 History of elbow surgery right for pinched nerve History of elbow surgery left for pinched nerve History of esophagogastroduodenoscopy (EGD) History of fusion of lumbar spine X 2 History of mandibular surgery pins in place of upper jaw to hold teeth No issues with opening or closing jaw History of prostate biopsy History of tonsillectomy and adenoidectomy History of tooth extraction all teeth History of total left hip replacement History of total right hip replacement History of transurethral resection of prostate Status post trigger finger release x2--one one each hand Family History Father Coronary heart disease Myocardial infarction Sister Colon cancer Unknown No family history of bleeding disorder Other No family history of adverse response to anesthesia Denies family history of Ovarian cancer Prostate cancer Breast cancer Lung cancer Colorectal cancer Social History Smoking Status: Former smoker Tobacco Type: Pipe and Cigars Age Started Using Tobacco: 39; Age Quit Using Tobacco: 74; Second Hand Exposure: No; Hx Alcohol Use: Yes Alcohol type: beer Alcohol Intake Frequency Comment: has 1 every afternoon Hx Substance Use: No Preferred Language: Sinhala Communication Ability: Effective Visual Impairment: Limited Hearing Ability: Normal Buddhist Monk Required: No Beliefs That Will Affect Care: None marital status: Current Living Situation: Spouse current occupational status: retired How many Children do You have: 0 Feels Safe at Home: Yes Childhood Exposure to Second-Hand Smoke: No caffeine: Yes (drinks coffee daily ) Dental Care, Regularly: No Physical Activity Frequency: 3-4 Times per Week Physical Activity Frequency Comment: lifts weights, stationary bike, treadmill Seatbelt Use: always Sunscreen Use: Yes Assistive Devices: Denture - Upper, Denture - Lower, Glasses and Hearing Aid - Bilateral Review of Systems Review of Systems: Denies current fever, chills, headache, changes in vision, hearing, taste, and smell, chest pain, SOB, cough, abdominal pain, nausea, vomiting, diarrhea, hematemesis, melena, dysuria, hematuria, and recent falls. All systems have been reviewed and are otherwise negative. Physical Exam Physical Exam: Physical Exam: General: In no acute distress, stated age, well-nourished, non-toxic appearing HEENT: Normocephalic, atraumatic, no scleral icterus, pupils around round, symmetrical, and reactive to light, moist mucus membranes, trachea midline, no thyromegaly Chest/Pulm: No respiratory distress, symmetrical chest expansion, clear breath sounds throughout Cardiac: RRR, no murmurs noted Abdomen: Negative for ascites and bruising, normoactive bowel sounds, soft, non-tender to palpation throughout Musculoskeletal: Symmetrical and without signs of acute trauma, patient without tenderness to palpation of the cervical and thoracic spine, mild tenderness to palpation over the left paravertebral muscles and buttocks, patient with intact ROM of the BL hips and knees with slightly decreased ROM of the LLE compared to right due to pain Extremities: Radial, dorsalis pedis, and posterior tibial pulses are intact and symmetrical, no edema noted in the LE's Skin: Warm, dry, no rashes , lesions, or scars noted Neuro: Alert and oriented to person, place, month, year, and president, no focal defects, CN II-XII tested and intact, no tremors noted, 2+ patellar and Achilles reflexes in the LE's Psych: No acute distress, calm and cooperative during the exam Results & Data Results & Data ([facility]) Vital Signs (Past 12 Hours) Vital Signs Temp Pulse Resp BP Pulse Ox O2 Del Method 01/02/23 13:10 52 L 17 96 01/02/23 13:00 49 L 17 95 01/02/23 13:00 136/72 01/02/23 12:50 50 L 17 96 01/02/23 12:40 52 L 20 96 01/02/23 12:30 49 L 17 96 01/02/23 12:30 135/67 01/02/23 12:23 48 L 18 96 01/02/23 12:25 47 L 01/02/23 11:29 36.5 C 59 L 16 152/74 H 96 Room Air Laboratory Results Abnormal lab results 01/02/23 01/02/23 Range/Units 13:49 13:49 RBC 4.66 L (4.70-6.10) M/uL RDW Std Deviation 47.0 H (36.4-46.3) fL Neut # (Auto) 8.30 H (1.40-6.50) K/uL [place] # (Auto) 1.05 H (0.11-0.59) K/uL Chloride 108 H (98-107) mmol/L Glucose 110 H (70-99(Fasting)) mg/dl Diagnostic Findings Hip/Pelvis X-Ray 01/02/23 11:37 XR hip LT 2V w pelvis HISTORY: 87 years-old Male fall, left hip pain acute left-sided hip pain COMPARISON: Pelvis and hip radiographs 04/18/2022 TECHNIQUE: AP view of the pelvis with 2 views of the left hip FINDINGS: Unremarkable appearance of the bilateral hip total joint arthroplasties. Demineralized appearance of the bones. No acute fracture or dislocation. Partially imaged fusion hardware of the lumbar spine with discectomy changes. Vascular calcifications. IMPRESSION: 1. No acute fracture or dislocation. 2. Unremarkable appearance of the bilateral hip total joint arthroplasties. ACT 112: Negative or not required by law. The above report was generated using voice recognition software. It may contain grammatical, syntax or spelling errors. Electronically signed by: Florentino Rodriguez M.D. 01/02/2023 1:34 PM Lumbar Spine MRI 01/02/23 13:43 MR lumbar spine wo con CLINICAL HISTORY: 87 years-old Male with low back pain down medial thigh, left thigh weak. Chronic low back pain with prior lumbar spine surgery. No known injury. COMPARISON: Lumbar spine radiographs 01/02/2022 TECHNIQUE: Multiplanar, multi sequence MRI of the lumbar spine was performed without intravenous contrast. FINDINGS: Distended urinary bladder. Conus medullaris terminates at the T12-L1 level. Signal within the imaged thoracic spinal cord is unremarkable. There is no acute fracture, subluxation, endplate erosion or significant bone marrow edema identified. The study is mildly motion degraded. Laminectomy at L2-S1. Posterior interbody rosa isela and screw fusion hardware noted at the L2-L4 levels. L4-L5 and L5- S1 discectomy. Artifact also noted related to the bilateral hip total joint arthroplasty. T12-L1: Mild intervertebral disc space narrowing with tiny posterior annular disc bulge and moderate facet arthrosis. No central canal or neural foraminal stenosis. L1-L2: Moderate intervertebral disc space narrowing with spondylitic spurring, circumferential annular disc bulge with ligamentum flavum thickening and severe facet arthrosis. Moderate central canal stenosis, AP dimension of the thecal sac measuring 7 mm. Mild right with [id number] left neural foraminal narrowing. L2-L3: Severe intervertebral disc space narrowing with small circumferential disc osteophyte complex. Posterior decompression. The central canal is patent. Suboptimal visualization of the neural foramina secondary to artifact from the hardware. There is suggestion of mild right with [id number] left neural foraminal narrowing. L3-L4: Severe intervertebral disc space narrowing with mild spondylitic spurring. Posterior decompression. Central canal is patent. Suboptimal position of the neural foramina secondary to artifact from the hardware. Moderate bilateral foraminal stenosis, left greater than right. L4-L5: Discectomy with posterior decompression. The central canal is patent. Suggestion of mild bilateral foraminal narrowing. L5-S1: Discectomy with posterior decompression. The central canal is patent. No significant neural foraminal narrowing at L5. IMPRESSION: 1. No acute fracture or significant bone marrow edema. 2. Degenerative and postoperative changes as above. 3. Moderate central canal stenosis at L1-L2 with multilevel neural foraminal narrowing as above. ACT 112: Negative or not required by law. The above report was generated using voice recognition software. It may contain grammatical, syntax or spelling errors. Electronically signed by: Florentino Rodriguez M.D. 01/02/2023 4:51 PM ECG Additional Comments: No ECG available at the time of the admission Code Status & VTE Plan Code Status Full code VTE Prophylaxis Plan VTE Prophylaxis will be ordered: Yes Supervising Physician Co-Signing Physician Notes I personally saw and examined the patient. I verified all mccord points and agree with Kendall Luis PA-C with the following exceptions and/or additions: 87 year old male who presents to the ER with back and left thigh pain without any trauma. O/E HS RRR, no murmurs, Chest CTAB, Abdo SNT, no pain on int/ext rotation of hip, no paraspinal or lumbar spinal pain on palpation. pain over palpation of left distal medial thigh. No numbness or weakness in left lower extremity. A/P Suspect strain of vastus medialis - Recommend pain management as above. PT/OT evals. No hip fracture on XR. Low suspicion of moderate central canal stenosis contributing based on exam. PG Care Time/CCT Total # of Minutes Spent Total Time Spent with Patient: Total time spent is greater than 50% in coordination of care (as documented) at patient's floor/unit and/or counseling patient: [place] [address] INT INP/OBS CARE MIN Patient Type Established Medical Decision Making Moderate Complexity Diagnoses Acute pain of left hip M25.552 BPH loc w urin obs/LUTS N40.1 GERD (gastroesophageal reflux disease) K21.9
--- NOTE | 2023-01-02 16:53 | Magnetic Resonance Report ---
MR lumbar spine wo con CLINICAL HISTORY: 87 years-old Male with low back pain down medial thigh, left thigh weak. Chronic l ow back pain with prior lumbar spine surgery. No known injury. COMPARISON: Lumbar spine radiographs 01/02/2022 TECHNIQUE: Multiplanar, multi sequence MRI of the lumbar spine was performed without intravenous cont rast. FINDINGS: Distended urinary bladder. Conus medullaris terminates at the T12-L1 level. Signal within the imaged thoracic spinal cord is unremarkable. There is no acute fracture, subluxation, endplate erosion or si gnificant bone marrow edema identified. The study is mildly motion degraded. Laminectomy at L2-S1. Po sterior interbody rosa isela and screw fusion hardware noted at the L2-L4 levels. L4-L5 and L5-S1 discectomy . Artifact also noted related to the bilateral hip total joint arthroplasty. T12-L1: Mild intervertebral disc space narrowing with tiny posterior annular disc bulge and moderate facet arthrosis. No central canal or neural foraminal stenosis. L1-L2: Moderate intervertebral disc space narrowing with spondylitic spurring, circumferential annul ar disc bulge with ligamentum flavum thickening and severe facet arthrosis. Moderate central canal st enosis, AP dimension of the thecal sac measuring 7 mm. Mild right with [id number]-ci-[id number] left neural f oraminal narrowing. L2-L3: Severe intervertebral disc space narrowing with small circumferential disc osteophyte complex . Posterior decompression. The central canal is patent. Suboptimal visualization of the neural forami na secondary to artifact from the hardware. There is suggestion of mild right with uhzv-ei-pcfamfix l eft neural foraminal narrowing. L3-L4: Severe intervertebral disc space narrowing with mild spondylitic spurring. Posterior decompre ssion. Central canal is patent. Suboptimal position of the neural foramina secondary to artifact from the hardware. Moderate bilateral foraminal stenosis, left greater than right. L4-L5: Discectomy with posterior decompression. The central canal is patent. Suggestion of mild bila teral foraminal narrowing. L5-S1: Discectomy with posterior decompression. The central canal is patent. No significant neural f oraminal narrowing at L5. IMPRESSION: 1. No acute fracture or significant bone marrow edema. 2. Degenerative and postoperative changes as above. 3. Moderate central canal stenosis at L1-L2 with multilevel neural foraminal narrowing as above. ACT 112: Negative or not required by law. The above report was generated using voice recognition software. It may contain grammatical, syntax o r spelling errors. Electronically signed by: Florentino Rodriguez M.D. 01/02/2023 4:51 PM
[2023-01-02] MEDS: CYCLOBENZAPRINE HCL 5 MG TAB PO SCH ×2 (17:46→21:04)
[2023-01-02] MEDS: ACETAMINOPHEN 325 MG TAB PO SCH ×2 (17:46→21:04)
[2023-01-02] MEDS: LIDOCAINE 5% 1 PATCH TD SCH (17:46)
[2023-01-02] MEDS ORDERED: ENOXAPARIN INJ 40 MG/0.4 ML SYR SQ SCH (19:30)
[2023-01-02 19:40] VITALS: O2SAT 95
[2023-01-02] MEDS ORDERED: TERAZOSIN HCL 1 MG CAP PO SCH (21:00)
[2023-01-03 05:51] LABS: Hematocrit (blood only) 36.6 % (42.0-52.0); Hemoglobin 12.9 g/dl (14.0-18.0); Mean Corpuscular Hemoglobin 32.1 pg (25.0-34.0); Mean Corpuscular Hgb Conc 35.2 g/dL (32.0-36.0); Mean Platelet Volume 10.9 fL (9.4-12.4); Platelet Count 207 K/uL (130-400); RDW Coefficient of Variation 13.6 % (11.5-14.5); RDW Standard Deviation 45.5 fL (36.4-46.3); Red Blood Count 4.02 M/uL (4.70-6.10)
[2023-01-03] MEDS: ACETAMINOPHEN 325 MG TAB PO SCH ×2 (05:54→11:12)
[2023-01-03 06:33] LABS: BUN Creatinine Ratio 18.7 (10-20); Calcium 8.5 mg/dl (8.5-10.1); Creatinine Clr Calc Pharmacy 42.1 ml/min; Est GFR (African American) 86.9 ml/min; Magnesium 2.1 mg/dl (1.7-2.4); Potassium 4.2 mmol/L (3.5-5.1)
[2023-01-03 08:13] VITALS: PULSE 65; TEMP 98.2
[2023-01-03] MEDS: LIDOCAINE 5% 1 PATCH TD SCH (08:13)
[2023-01-03] MEDS: CYCLOBENZAPRINE HCL 5 MG TAB PO SCH ×2 (08:13→13:57)
[2023-01-03] MEDS ORDERED: PANTOprazole 40 MG TAB PO SCH (09:00)
--- NOTE | 2023-01-03 12:47 | Discharge Summary ---
Date of Service January 03, 2023 Admission HPI Per Admitting Provider Chris is an 87 year old male with a PMH significant for lumbar spinal stenosis S/P prior laminectomy and fusion with revision with resultant L2-[address] Hook in 2020, post laminectomy syndrome and s acroiliitis, (follows with pain management), BPH, GERD with previous Duodenal Ulcer, and hyperlipidemia who presented to the [facility] ED on 01/02/23 with chief complaints of left hip pain. In the ED the patient was found to be afebrile, hemodynamically stable, and stable on RA. Labs were remarkable for a CBC WNL, stable Cr of 0.87 with stable electrolytes. Xray of the left hip was read as "1. No acute fracture or dislocation. 2. Unremarkable appearance of the bilateral hip total joint arthroplasties.". In the Ed the patient was given a total of 1 mg IV Dilaudid and 10 mg IV dexamethasone but he was unable to ambulate. The ED requested admission for PT/OT and ordered an MRI of the lumbar spine for further evaluation. A discussion was held between Hospital medicine and the ED staff, if they patient's MRI would reveal abnormalities requiring a spinal surgeon the ED would coordinate transfer as [facility] does not have an assistant manager of operations spinal surgeon at this time. At the time of the exam the patient had just returned from his MRI and was in no acute distress with his sitting bedside. The patient states that he woke up today in his normal state of health around 0600. He went for his usually walk around his home around 0700 and then rested on the couch. After sitting and resting the patient began to experience pain running across his low back with radiation into the left buttocks, across his anterior left thigh/groin, and down to his knee. When asked, he confirms that this is the distribution of his typical chronic back pain, for which he sees pain management. However, the pain is more severe today and he initial noticed some numbness/tingling in his thigh when initially sitting down. He took an oxycodone which provided mild/temporary relief of his symptoms but they shortly returned, which led to him coming to the ED. At the time of my exam the patient says his symptoms are controlled at rest. However, he expediencies significant exacerbation of the symptoms with movement of his back or left leg. He attempted to ambulate to the bathroom approximately 2 hours prior but had weakness in his left leg and required assistance by his nurse. He denies saddle anesthesia, loss of bowel or bladder function, and recent trauma. I discussed coming into the hospital for symptom management and to be seen for PT/OT so we can plan a safe discharge home, he and his are in agreement with that plan pending results of his lumbar spine MRI. The patient is a Full Code and would want his to make medical decisions for him if he could not make them himself. Per chart review, the patient last received an Right L5 dorsal ramus S1 S2 S3 lateral branch radiofrequency ablation with Dr. Matos on 09/11 and Radio Frequency Ablation left L5,Dorsal Ramus, S1,S2,S3 Lateral Branches Water Cooled with Dr. Matos on 09/13/23. The patient experienced a small burn at the site of the left ablation which has been monitored closely by pain management. His has been caring for the burn daily and confirms that it has almost completely healed. Principal Diagnosis hip pain Discharge Exam The patient is awake, alert and oriented 3, well developed and well nourished, normocephalic and atraumatic, lying in bed and in no acute distress. HEENT--PERRL, EOMI, mucous membranes and oropharynx mildly dry Neck--supple. No JVD. No bruits. Thyroid normal, trachea midline, no adenopathy. Heart--normal S1 and S2. No murmurs, rubs or gallops. Lungs--clear bilaterally, no respiratory distress, no accessory muscle use. Abdomen--normal bowel sounds and soft. Mild epigastric and left sided abdominal pain Extremities--no cyanosis or clubbing. No edema. Dermatologic--normal skin turgor, normal color, no abnormal lymph nodes, no rash. Neurologic--cranial nerves II through XII grossly intact. Rheumatologic--normal range of motion. Psychiatric--normal affect. Discharge Data Allergies Allergy/AdvReac Type Severity Reaction Status Date / Time No Known Drug Allergies Allergy Verified 01/02/23 14:41 Consultations 01/02/23 15:12 ED Decision to Admit Routine Ordered Studies 01/02/23 13:43 MR lumbar spine wo con Stat Hospital Course (1) Acute pain of left hip: -Resolved -Xray of the BL hips was negative for acute trauma -MRI of the lumbar spine shows severe intervertebral disc space narrowingwith [id number] left neural foraminal narrowing -No red flag symptoms at this time -Patient asked to follow up with ortho outpatient (2) BPH loc w urin obs/LUTS: -Continue terazosin (3) GERD (gastroesophageal reflux disease): -Continue omeprazole Plan d/c home Total Time Total Time Spent Total Time Spent (In Minutes): 35 Discharge Plan Discharge Items Patient Disposition: Home - Self-Care Reason For Visit: L HIP PAIN Discharge Diagnosis: left hip pain Activity: Resume your previous activity Non-emergency contact: Primary Care Provider Call non-emergency contact if: you have any medication questions and your symptoms worsen Follow-up/Referrals: Rodriguez Gutierrez MD [Primary Care Provider] - 01/11/23 8:30 am (APPOINTMENT WITH [facility]RIST[facility] LYLES) Diet: Regular Addtl Attending Provider Instructions: Please re establish care with outpatient orthopedics for pain management and i njections if your pain worsens Pending Studies at Discharge: No Stand-Alone Forms: [facility], Smoking Cessation Medications and DC Order Prescriptions: Continued magnesium 200 mg tablet 200 mg PO 2XWK omeprazole 20 mg tablet,delayed release (DR/EC) 40 mg PO QAM Ensure liquid 1 ea PO QAM omega-3 acid ethyl esters 1 gram capsule 1 cap PO QDL Adult Multivitamin Gummies 200 mcg tablet,chewable 200 mcg PO QAM [facility] Back [facility] Body 500-32.5 mg Tablet 1 tab PO UD PRN (Reason: Pain) [place] Allergy [facility] Sinus 2.65 % Aerosol,[place] 1 - 2 spray INTRANASAL HS PRN (Reason: Congestion) terazosin 2 mg capsule 4 mg PO HS cholecalciferol (vitamin D3) [Vitamin D3] 10 mcg (400 unit) Tablet,Chewable 10 mcg PO QAM zinc acetate 50 mg (zinc) Capsule 50 mg PO 2XWK Discharge Orders: Discharge Order (Routine); Ordered 01/03/23 Ordered By: Randy Carpenter Admission Data Admit Date/Time: 01/02/23 15:42 Attending Provider: Randy Carpenter Admit Provider: Jose Alberto Gaspar Primary Care Provider: Rodriguez Gutierrez Other Providers: Jose Alberto Gaspar Coding Level of Care Code 20403 INP/OBS DISCH >30 MIN Diagnoses Acute pain of left hip M25.552 BPH loc w urin obs/LUTS N40.1 GERD (gastroesophageal reflux disease) K21.9 Time Spent (min) 35
[2023-01-03 13:51] VITALS: BP 115/58
== END 2023-01-03 14:59 | disposition home or self-care (01) ==
LOC: ED 11:25 → 3E 11:25 → SUATTDRO 15:42 → 3E 18:44